=== PATIENT | male | born 1955 | race Caucasian/White ===

== ENCOUNTER 2022-10-25 16:53 | Inpatient (IN) ==
--- NOTE | 2022-10-25 17:54 | Emergency Department Note ---
SOB HPI General Chief Complaint: Shortness of Breath/Dyspnea Stated Complaint: retaining water Time Seen by Provider: 10/25/22 17:54 Source: patient Mode of arrival: ambulatory Limitations: no limitations History of Present Illness HPI Narrative: Narrative: Patient presents emerged department after being seen in urgent care today and he has been having increased welling for the last few days and over the past 4 to 5 days he has noted distention in his abdomen swelling in the abdomen swelling in his scrotum swelling in his legs and he is got a cough that is productive at times with a little bit of phlegm but is not unusual in character to him he is also sure breath with any exertion. He states that he used to urinate as many as 5 times per night and doctor recently changed his medications and he is now urinating hardly at all at nighttime. He denies fever or chills, denies known exposure to COVID, influenza, other infectious disease. He has not been have any orthopnea. The distention to his abdomen is becoming fairly uncomfortable. He denies any chest pain, history of congestive heart failure, history of dysrhythmia. He denies any diarrhea or constipation. States he is moves his bowels regularly every day but does seem to be a little less stool than usual for him. He has not had any dysuria. He is at his baseline state of health otherwise except for these new symptoms. Patient does admit to have shortness of breath with minimal exertion. Related Data Home Medications Medication Instructions Recorded Confirmed aspirin 325 mg tablet 325 mg PO HS 10/05/20 10/25/22 naproxen sodium 220 mg capsule 220 mg PO DAILY 10/05/20 10/25/22 (Aleve) CPAP & Supplies 1 inh inhalation HS FARZANEH 10/13/20 10/25/22 metformin 500 mg tablet 500 mg PO QDAY 03/19/22 10/25/22 losartan PO QDAY 09/03/22 10/25/22 Previous Rx's Medication Instructions Recorded lancets #100 ea 12/08/18 clobetasol 0.05 % topical ointment 1 applic topical QDAY #60 grams 12/07/20 alprazolam 0.5 mg tablet 0.5 mg PO DAILYP PRN anxiety #30 12/28/20 tabs valacyclovir 1 gram tablet 1,000 mg PO BID PRN Cold Sores 03/03/21 #180 tabs arm brace (NATHAN Elbow Brace) #1 ea 03/19/22 gabapentin 300 mg capsule 600 mg PO BID #240 caps 03/19/22 verapamil 180 mg 24 hr 180 mg PO HS #90 caps 04/19/22 capsule,extended release levothyroxine 88 mcg tablet 88 mcg PO QDAY #90 tabs 04/24/22 blood sugar diagnostic (OneTouch #100 ea 05/22/22 Ultra Test strips) tamsulosin 0.4 mg capsule (Flomax) 0.8 mg PO HS #180 caps 06/14/22 ropinirole 0.5 mg tablet 0.5 mg PO QHS #90 tabs 06/20/22 hydrocodone 7.5 mg-acetaminophen 1 tab PO BID PRN pain #60 tabs 10/08/22 325 mg tablet solifenacin 10 mg tablet 10 mg PO ONCE #30 tabs 10/15/22 Allergies Allergy/AdvReac Type Severity Reaction Status Date / Time terbinafine AdvReac Mild Rash Verified 10/25/22 17:01 Review of Systems ROS ROS Narrative: Narrative: See HPI for pertinent positives and negatives in review of systems. PFSH Narrative Patient History Narrative: Narrative: Medical/Surgical/Family History All Active Problems (Updated 10/25/22 @ 19:33 by Nicol Lau DO) Acute hyponatremia (Acute) FLORES (dyspnea on exertion) (Acute) Anasarca (Acute) Scrotal edema (Acute) Abscess and cellulitis (Chronic) Encounter for wound re-check (Chronic) Anxiety (Chronic) Arthritis (Chronic) Essential hypertension (Chronic) Joint pain (Chronic) Sleep apnea (Chronic) Tobacco abuse (Chronic) Eczema (Chronic) Ear discharge of both ears (Acute) Onychomycosis (Chronic) Skin plaque (Chronic) Granuloma of liver (Chronic) Osteoarthritis of knees, bilateral (Chronic) Dermatosis (Chronic) Cellulitis of leg, left (Acute) Bilateral hip pain (Chronic) Osteoarthritis (Chronic) Bilateral knee pain (Chronic) Foot pain (Chronic) Obesity (Chronic) Skin lesion (Chronic) Severe headache (Chronic) Adhesive capsulitis (Chronic) Sebaceous cyst (Chronic) Low back pain (Chronic) Decreased hearing (Chronic) Infective otitis externa, unspecified (Chronic) Left shoulder pain (Chronic) Rotator cuff syndrome (Chronic) Obstructive sleep apnea (Chronic) Insomnia (Chronic) BPH (benign prostatic hyperplasia) (Chronic) Chronic radicular low back pain (Chronic) Pain, eye, right (Acute) Shoulder pain, right (Acute) Left leg swelling (Acute) Left leg pain (Acute) Deep vein thrombosis of lower extremity (Acute) Knee pain, right (Acute) DM type 2 (diabetes mellitus, type 2) (Chronic) Plantar fasciitis of left foot (Chronic) Vertigo (Acute) Deep vein thrombosis of lower extremity (Chronic) HSV-1 infection (Chronic) Abscess (Acute) Medicare annual wellness visit, initial (Acute) Nail abnormality (Acute) Hypothyroidism (Acute) Hypothyroidism (Acute) Postoperative pain of knee (Acute) S/P total knee arthroplasty (Acute) Taste sense altered (Acute) Constipation (Acute) Splenomegaly (Acute) Pilonidal cyst (Acute) Pressure ulcer of coccygeal region (Acute) Normocytic normochromic anemia (Acute) Early satiety (Acute) Chronic pain (Chronic) Myelofibrosis (Acute) Chronic sinusitis (Acute) Acute sinusitis (Acute) Diarrhea (Acute) Impacted cerumen of both ears (Acute) Olecranon bursitis of left elbow (Acute) Neuropathic pain (Acute) Joint effusion of elbow (Acute) Medicare annual wellness visit, initial (Acute) Major depressive disorder (Acute) Overactive bladder (Acute) RLS (restless legs syndrome) (Acute) Urinary frequency (Chronic) Nocturia (Chronic) Medical History Abscess and cellulitis Adhesive capsulitis left hip Anxiety Arthritis Bilateral hip pain Bilateral knee pain Chronic pain Decreased hearing intermittent Encounter for wound re-check Essential hypertension Foot pain Infective otitis externa, unspecified Joint effusion of elbow Joint pain Left shoulder pain Low back pain Medicare annual wellness visit, initial Medicare annual wellness visit, initial Neuropathic pain Nocturia Obesity Osteoarthritis Rotator cuff syndrome left Sebaceous cyst neck Severe headache Skin lesion back of neck Sleep apnea 1994 Splenomegaly Tobacco abuse Urinary frequency Surgical History H/O knee surgery x4 History of arthroplasty of left knee (10/13/20) History of back surgery 2001 History of colonoscopy 2010 Family History Sister Arthritis Mother , at 54 Cancer Coronary artery disease Father , 58 Essential hypertension Myocardial Infarction Cerebrovascular accident (CVA) Social History Smoking Status: Current every day smoker Alcohol Intake Frequency: holiday/special occasion only Substance Use: marijuana Exam Narrative Narrative: Narrative: General Limitations: no limitations General appearance: Present alert, in no apparent distress, nontoxic and obese Head Head: Present atraumatic, normocephalic and normal inspection Eye Eye: Present normal appearance and EOMI; Absent scleral icterus, conjunctival injection or periorbital swelling ENT ENT: Present normal exam, normal oropharynx, mucous membranes dry (Mildly) and normal external ear exam Neck Neck: Present normal inspection, full ROM and trachea midline Chest Chest: Present normal inspection and symmetric chest wall rise Respiratory Respiratory: Present rales/crackles (Diffuse in all lim[place] bilaterally.); Absent respiratory distress, wheezes, stridor or accessory muscle use Cardiovascular Cardiovascular: Present regular rate, normal rhythm and normal heart sounds; Absent systolic murmur, diastolic murmur, rubs, gallop or clicks Adbominal Abdominal: Present soft, distention, diminished bowel sounds and other (Anasarca present over the entire abdomen from the xiphoid process distally. Patient has 2+ pitting alert over the entire abdomen); Absent tenderness, guarding, Machado's sign, ascites (No fluid wave present.) or pulsatile mass Rectal Rectal: Present deferred : Present scrotal swelling, circumcised and other (Patient has anasarca involving the testicles and has approximately a grapefruit sized testicular sac.); Absent testicular tenderness, urethral discharge or epididymal tenderness Extremities Extremities: Present normal inspection, full ROM (No motion abnormalities noted on gross peripheral examination. No gross deformities to the extremities.), pedal edema (2+ pitting) and pretibial edema (2+ pitting); Absent tenderness or cyanosis Neurological Neurological: Present alert, oriented X3, CN II-XII intact and other (Patient is mildly hard of hearing.); Absent motor sensory deficit (On gross peripheral examination.) Psychiatric Psychiatric: Present normal affect, normal mood and pleasant Skin Skin: Present warm (WNL), dry, intact, normal color and pallor (Questionable); Absent diaphoretic, rash, hives, cyanosis, diaphoresis or erythema Course Vital Signs Vital signs: Vital Signs Temperature 98.3 F 10/25/22 16:58 Pulse Rate 89 10/25/22 16:58 Respiratory Rate 18 10/25/22 16:58 Blood Pressure 147/78 10/25/22 16:58 Pulse Oximetry (%) 100 10/25/22 16:58 Oxygen Delivery Method 10/25/22 16:58 Temperature 98.3 F 10/25/22 16:58 Pulse Rate 55 L 10/25/22 17:57 Respiratory Rate 18 10/25/22 16:58 Blood Pressure 128/72 10/25/22 17:47 Pulse Oximetry (%) 96 10/25/22 17:57 Oxygen Delivery Method 10/25/22 16:58 MDM MDM Narrative Medical decision making narrative: Narrative: Patient presents emerged part with complaint of shortness of breath worsened with exertion and swelling from the epigastric portion of his abdomen distally to his feet with generalized anasarca with 2+ pitting. Please see HPI, physical exam, chart about further details. I have ordered work-up for congestive heart failure to include CBC, chemistry, troponin, EKG, chest x-ray, BNP. Patient's BNP is returned elevated at 5000, sodium is low at 116, his troponin is normal. He has generalized anasarca and because of his hyponatremia should be admitted. We will going order some Lasix for him and turned care of patient over to Dr. Javier at 1930 hrs. Final diagnosis disposition per Dr. Javier. Sepsis Sepsis Identified: No Differential Diagnosis Differential Diagnosis: Congestive heart failure, MA, hypoalbuminemia, anasarca, electrolyte abnorm Medical Records Medical records reviewed: Yes I reviewed the patient's medical records. Lab Data Lab results reviewed: Yes I reviewed the patient's lab results. Result diagrams: 10/25/22 18:16 Labs: Lab Results 10/25/22 Range/Units 18:26 POC Hct 30.0 L (41-55) POC Sodium 116 L* (133-145) POC Potassium 5.3 H (3.3-5.1) POC Chloride 90 L (96-108) POC Total CO2 18.0 L (22-30) POC BUN 33 H (6-20) POC Creatinine 1.1 (0.6-1.2) POC Glucose 113 H (70-105) POC WB Ioniz Calcium 0.98 L (1.16-1.32) Radiology Data Radiology results reviewed: Yes I reviewed the patient's radiology results. Radiology results narrative: Pro chest x-ray does not show any evidence of congestive heart failure. He does have cardiomegaly. No infiltrates noted. Radiology overread is pending. When compared to previous chest x-ray performed on April 27, 2022 there is a little bit more heart enlargement otherwise not changed. EKG Data EKG #1: EKG attestation: Yes I reviewed and interpreted this EKG. EKG results narrative: EKG obtained this date at 1828 hrs. interpreted by myself shows a junctio V2, V3, V4, V5. There are ST depressions noted in leads I, aVL, V2 through V6. There are no prior EKGs available for comparison. Question ischemia, no definite STEMI noted. Al rhythm at 58 bpm. [place] is normal. [place] intervals when present are approximate 240 ms. There are some areas of the EKG and in certain leads I do not have preceding P waves. Remainder of intervals within normal limits. Morphology show right bundle branch block with RSR prime in leads V1 and V2 as well as V3. There are T wave inversions in leads aVL, V1 Discharge Plan Patient/Caregiver Discharge Instructions Pt seen by DUST CONTROL ENGINEER/PA only: No Clinical Impression: Acute hyponatremia, FLORES (dyspnea on exertion), Anasarca, Scrotal edema Patient Disposition: Still a Patient Follow up with: Elie Adam DO [Primary Care Provider] - Prescriptions: No Action (DME) lancets [facility] See Dose Instructions .ROUTE .MEDSUPPLY Qty: 100 3RF Dose Instruction: As directed Rx Instructions: Use to test blood sugar up to three times daily valacyclovir 1 gram tablet 1,000 mg PO BID PRN (Reason: Cold Sores) Qty: 180 1RF Label Comments: PATIENT ONLY TAKES WHEN HE HAS COLD SORES. alprazolam 0.5 mg tablet 0.5 mg PO DAILYP PRN (Reason: anxiety) Qty: 30 3RF verapamil 180 mg capsule,ext rel. pellets 24 hr 180 mg PO HS Qty: 90 1RF levothyroxine 88 mcg tablet 88 mcg PO QDAY Qty: 90 3RF (DME) OneTouch Ultra Test Strip See Rx Instructions .Route Qty: 100 3RF Rx Instructions: As directed testing blood sugar once daily tamsulosin [Flomax] 0.4 mg capsule 0.8 mg PO HS Qty: 180 1RF hydrocodone-acetaminophen 7.5-325 mg tablet 1 tab PO BID PRN (Reason: pain) Qty: 60 0RF clobetasol 0.05 % ointment 1 applic TOPICAL QDAY Qty: 60 0RF metformin 500 mg tablet 500 mg PO QDAY gabapentin 300 mg capsule 600 mg PO BID Qty: 240 3RF (DME) NATHAN Elbow Brace Misc See Rx Instructions .Route Qty: 1 0RF Rx Instructions: As directed ropinirole 0.5 mg tablet 0.5 mg PO QHS Qty: 90 3RF Hold Instructions: Doctor's Order Rx Instructions: administer 1-3 hours before bedtime aspirin 325 mg Tablet 325 mg PO HS Label Comments: HOLDING FOR SURGERY naproxen sodium [Aleve] 220 mg Capsule 220 mg PO DAILY Label Comments: HOLDING FOR SURGERY CPAP & Supplies inhaler 1 inh inhalation HS Rx Instructions: Use nightly for FARZANEH. losartan PO QDAY solifenacin 10 mg tablet 10 mg PO ONCE Qty: 30 6RF
[2022-10-25 18:31] LABS: POC Calcium, Ionized 0.98 (1.16-1.32); POC Creatinine 1.1 (0.6-1.2); POC Potassium 5.3 (3.3-5.1)
[2022-10-25 18:55] LABS: Basophils # (Auto) 0.14 K/mcL (0.00-0.30); Basophils % (Auto) 1.9 % (0.0-2.0); Eosinophils # (Auto) 0.02 K/mcL (0.00-0.70); Eosinophils % (Auto) 0.3 % (0.0-7.0); Hematocrit 28.8 % (40.1-51.0); Hemoglobin 9.7 g/dL (13.7-17.5); Lymphocytes # (Auto) 1.09 K/mcL (1.50-4.80); Lymphocytes % (Auto) 14.7 % (15.5-49.0); Mean Corpuscular HGB Conc 33.7 g/dL (31.0-36.0); Mean Platelet Volume 9.4 fL (8.8-12.5); Monocytes # (Auto) 0.39 K/mcL (0.10-0.90); Monocytes % (Auto) 5.3 % (1.0-12.0); Neutrophils % (Auto) 60.8 % (38.0-78.0); Platelet Count 323 K/mcL (140-440); RBC 3.31 M/mcL (4.63-6.08); Red Cell Distribution Width 15.7 % (11.5-14.5); WBC 7.4 K/mcL (4.5-11.0)
[2022-10-25 19:10] LABS: ALT/SGPT 19 U/L (<40); AST/SGOT 19 U/L (<40); Albumin 3.9 gm/dL (3.2-5.2); Alkaline Phosphatase 117 U/L (39-117); Bilirubin,Direct 0.3 mg/dL (<0.3); Bilirubin,Total 0.7 mg/dL (0.1-1.0); Globulin 1.9 gm/dL (2.2-3.7)
[2022-10-25] MEDS ORDERED: FUROSEMIDE 40 MG/4 ML VIAL IV ONE (19:30)
--- NOTE | 2022-10-25 20:09 | Emergency Department Note ---
Course Course Course Narrative: I assumed care of patient at 1900 pending labs and hospitalist consult. Patient's laboratories show that she was hyponatremic and hyperkalemic. EKG was unremarkable. Chest x-ray obtained with image reviewed myself with shows some cardiomegaly but no pleural effusions. Case was discussed with hospitalist who has agreed to admit the patient for symptomatic hyponatremia and possible CHF exacerbation. Plan of care was discussed with patient expressed verbal understanding and agreement Vital Signs Vital signs: Vital Signs Temperature 98.3 F 10/25/22 16:58 Pulse Rate 89 10/25/22 16:58 Respiratory Rate 18 10/25/22 16:58 Blood Pressure 147/78 10/25/22 16:58 Pulse Oximetry (%) 100 10/25/22 16:58 Oxygen Delivery Method 10/25/22 16:58 Temperature 98.3 F 10/25/22 16:58 Pulse Rate 57 L 10/25/22 19:32 Respiratory Rate 21 10/25/22 19:32 Blood Pressure 124/94 10/25/22 19:32 Pulse Oximetry (%) 95 10/25/22 19:32 Oxygen Delivery Method 10/25/22 18:38 MDM MDM Narrative Medical decision making narrative: Narrative: Differential Diagnosis Differential Diagnosis: Hyponatremia Medical Records Medical records reviewed: Yes I reviewed the patient's medical records. Lab Data Lab results reviewed: Yes I reviewed the patient's lab results. Result diagrams: 10/25/22 18:16 Labs: Lab Results 10/25/22 10/25/22 10/25/22 Range/Units 18:16 18:16 18:23 WBC 7.4 (4.5-11.0) K/mcL RBC 3.31 L (4.63-6.08) M/mcL Hgb 9.7 L (13.7-17.5) g/dL Hct 28.8 L (40.1-51.0) % POC Hct (41-55) MCV 87.0 (80.0-100.0) fL MCH 29.3 (26.0-34.0) pg MCHC 33.7 (31.0-36.0) g/dL RDW 15.7 H (11.5-14.5) % Plt Count 323 (140-440) K/mcL MPV 9.4 (8.8-12.5) fL Immature Gran % (Auto) 17.0 H (0.0-0.5) % Neut % (Auto) 60.8 (38.0-78.0) % Lymph % (Auto) 14.7 L (15.5-49.0) % [place] % (Auto) 5.3 (1.0-12.0) % Eos % (Auto) 0.3 (0.0-7.0) % Baso % (Auto) 1.9 (0.0-2.0) % Lymph # (Auto) 1.09 L (1.50-4.80) K/mcL [place] # (Auto) 0.39 (0.10-0.90) K/mcL Eos # (Auto) 0.02 (0.00-0.70) K/mcL Baso # (Auto) 0.14 (0.00-0.30) K/mcL Immature Gran # 1.26 H (0.00-0.05) K/mcl Absolute Neutrophils 4.52 (1.80-8.00) K/mcL POC Sodium (133-145) POC Potassium (3.3-5.1) POC Chloride (96-108) POC Total CO2 (22-30) POC BUN (6-20) POC Creatinine (0.6-1.2) POC Glucose (70-105) POC WB Ioniz Calcium (1.16-1.32) Total Bilirubin 0.7 (0.1-1.0) mg/dL Direct Bilirubin 0.3 H (<0.3) mg/dL AST 19 (<40) U/L ALT 19 (<40) U/L Alkaline Phosphatase 117 (39-117) U/L NT-Pro-B Natriuret Pep 5059.0 H (<125.0) pg/mL Total Protein 5.8 L (5.9-8.4) gm/dL Albumin 3.9 (3.2-5.2) gm/dL Globulin 1.9 L (2.2-3.7) gm/dL POC Troponin I < 0.02 (0.00-0.08) 10/25/22 Range/Units 18:26 WBC (4.5-11.0) K/mcL RBC (4.63-6.08) M/mcL Hgb (13.7-17.5) g/dL Hct (40.1-51.0) % POC Hct 30.0 L (41-55) MCV (80.0-100.0) fL MCH (26.0-34.0) pg MCHC (31.0-36.0) g/dL RDW (11.5-14.5) % Plt Count (140-440) K/mcL MPV (8.8-12.5) fL Immature Gran % (Auto) (0.0-0.5) % Neut % (Auto) (38.0-78.0) % Lymph % (Auto) (15.5-49.0) % [place] % (Auto) (1.0-12.0) % Eos % (Auto) (0.0-7.0) % Baso % (Auto) (0.0-2.0) % Lymph # (Auto) (1.50-4.80) K/mcL [place] # (Auto) (0.10-0.90) K/mcL Eos # (Auto) (0.00-0.70) K/mcL Baso # (Auto) (0.00-0.30) K/mcL Immature Gran # (0.00-0.05) K/mcl Absolute Neutrophils (1.80-8.00) K/mcL POC Sodium 116 L* (133-145) POC Potassium 5.3 H (3.3-5.1) POC Chloride 90 L (96-108) POC Total CO2 18.0 L (22-30) POC BUN 33 H (6-20) POC Creatinine 1.1 (0.6-1.2) POC Glucose 113 H (70-105) POC WB Ioniz Calcium 0.98 L (1.16-1.32) Total Bilirubin (0.1-1.0) mg/dL Direct Bilirubin (<0.3) mg/dL AST (<40) U/L ALT (<40) U/L Alkaline Phosphatase (39-117) U/L NT-Pro-B Natriuret Pep (<125.0) pg/mL Total Protein (5.9-8.4) gm/dL Albumin (3.2-5.2) gm/dL Globulin (2.2-3.7) gm/dL POC Troponin I (0.00-0.08) Radiology Data Radiology results reviewed: Yes I reviewed the patient's radiology results. Radiology results narrative: Chest x-ray obtained with image reviewed myself, agree with radiologist to rotation Core Measures AMI Core Measures Followed: Yes Discharge Plan Patient/Caregiver Discharge Instructions Pt seen by HEALTH IT SPECIALIST/PA only: No Clinical Impression: Acute hyponatremia, FLORES (dyspnea on exertion), Anasarca, Scrotal edema Patient Disposition: Xfer As Outpt/Obs ([facility]) Condition: Critical Follow up with: Elie Adam DO [Primary Care Provider] - Prescriptions: No Action (DME) lancets misc See Dose Instructions .ROUTE .MEDSUPPLY Qty: 100 3RF Dose Instruction: As directed Rx Instructions: Use to test blood sugar up to three times daily valacyclovir 1 gram tablet 1,000 mg PO BID PRN (Reason: Cold Sores) Qty: 180 1RF Label Comments: PATIENT ONLY TAKES WHEN HE HAS COLD SORES. alprazolam 0.5 mg tablet 0.5 mg PO DAILYP PRN (Reason: anxiety) Qty: 30 3RF verapamil 180 mg capsule,ext rel. pellets 24 hr 180 mg PO HS Qty: 90 1RF levothyroxine 88 mcg tablet 88 mcg PO QDAY Qty: 90 3RF (DME) OneTouch Ultra Test Strip See Rx Instructions .Route Qty: 100 3RF Rx Instructions: As directed testing blood sugar once daily tamsulosin [Flomax] 0.4 mg capsule 0.8 mg PO HS Qty: 180 1RF hydrocodone-acetaminophen 7.5-325 mg tablet 1 tab PO BID PRN (Reason: pain) Qty: 60 0RF clobetasol 0.05 % ointment 1 applic TOPICAL QDAY Qty: 60 0RF metformin 500 mg tablet 500 mg PO QDAY gabapentin 300 mg capsule 600 mg PO BID Qty: 240 3RF (DME) NATHAN Elbow Brace Misc See Rx Instructions .Route Qty: 1 0RF Rx Instructions: As directed ropinirole 0.5 mg tablet 0.5 mg PO QHS Qty: 90 3RF Hold Instructions: Doctor's Order Rx Instructions: administer 1-3 hours before bedtime aspirin 325 mg Tablet 325 mg PO HS Label Comments: HOLDING FOR SURGERY naproxen sodium [Aleve] 220 mg Capsule 220 mg PO DAILY Label Comments: HOLDING FOR SURGERY CPAP & Supplies inhaler 1 inh inhalation HS Rx Instructions: Use nightly for FARZANEH. losartan PO QDAY solifenacin 10 mg tablet 10 mg PO ONCE Qty: 30 6RF
--- NOTE | 2022-10-25 20:17 | Internal Med History&Physical ---
HPI History of Present Illness Patient information: Note initiated : 10/25/22 at 8:16 pm Service Date, if different from initiated Date: [] Patient: Davis Terrazas 66 y/o M admitted on for retaining water. Chief Complaint: [] History of present illness: Mr. 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 Patient also had a recent cough and left neck tenderness. Review of systems Constitutional: no fever, fatigue, or weight loss Eyes: no vision changes or pain Cardiovascular: no chest pain, no palpitations Respiratory: Positive for shortness of breath, cough and sore throat Gastrointestinal: no abdominal pain, no nausea, vomiting, or diarrhea Genitourinary: no dysuria or difficulty voiding Musculoskeletal: Positive for bilateral lower extremity edema Integumentary: As it of for wound on right lower extremity Neurological: no focal weakness or numbness Psychiatric: no anxiety or depression Physical exam Head: Atraumatic, normal inspection. Eyes: normal appearance, no scleral icterus. Neck: full ROM Respiratory: no respiratory distress. Cardiovascular: normal rate and rhythm, S1, S2. GI/Abdominal: Obesely distended, large palpable spleen, nontender, no guarding. Extremities: Bilateral lower extremity pitting edema 3+ Neurological: CN II-XII intact, intact motor, intact sensation. Psychiatric: normal mood. Skin: Circular wound on right lower extremity PFSH PFSH All Active Problems (Updated 10/25/22 @ 19:33 by Nicol Lau DO) Acute hyponatremia (Acute) FLORES (dyspnea on exertion) (Acute) Anasarca (Acute) Scrotal edema (Acute) Abscess and cellulitis (Chronic) Encounter for wound re-check (Chronic) Anxiety (Chronic) Arthritis (Chronic) Essential hypertension (Chronic) Joint pain (Chronic) Sleep apnea (Chronic) Tobacco abuse (Chronic) Eczema (Chronic) Ear discharge of both ears (Acute) Onychomycosis (Chronic) Skin plaque (Chronic) Granuloma of liver (Chronic) Osteoarthritis of knees, bilateral (Chronic) Dermatosis (Chronic) Cellulitis of leg, left (Acute) Bilateral hip pain (Chronic) Osteoarthritis (Chronic) Bilateral knee pain (Chronic) Foot pain (Chronic) Obesity (Chronic) Skin lesion (Chronic) Severe headache (Chronic) Adhesive capsulitis (Chronic) Sebaceous cyst (Chronic) Low back pain (Chronic) Decreased hearing (Chronic) Infective otitis externa, unspecified (Chronic) Left shoulder pain (Chronic) Rotator cuff syndrome (Chronic) Obstructive sleep apnea (Chronic) Insomnia (Chronic) BPH (benign prostatic hyperplasia) (Chronic) Chronic radicular low back pain (Chronic) Pain, eye, right (Acute) Shoulder pain, right (Acute) Left leg swelling (Acute) Left leg pain (Acute) Deep vein thrombosis of lower extremity (Acute) Knee pain, right (Acute) DM type 2 (diabetes mellitus, type 2) (Chronic) Plantar fasciitis of left foot (Chronic) Vertigo (Acute) Deep vein thrombosis of lower extremity (Chronic) HSV-1 infection (Chronic) Abscess (Acute) Medicare annual wellness visit, initial (Acute) Nail abnormality (Acute) Hypothyroidism (Acute) Hypothyroidism (Acute) Postoperative pain of knee (Acute) S/P total knee arthroplasty (Acute) Taste sense altered (Acute) Constipation (Acute) Splenomegaly (Acute) Pilonidal cyst (Acute) Pressure ulcer of coccygeal region (Acute) Normocytic normochromic anemia (Acute) Early satiety (Acute) Chronic pain (Chronic) Myelofibrosis (Acute) Chronic sinusitis (Acute) Acute sinusitis (Acute) Diarrhea (Acute) Impacted cerumen of both ears (Acute) Olecranon bursitis of left elbow (Acute) Neuropathic pain (Acute) Joint effusion of elbow (Acute) Medicare annual wellness visit, initial (Acute) Major depressive disorder (Acute) Overactive bladder (Acute) RLS (restless legs syndrome) (Acute) Urinary frequency (Chronic) Nocturia (Chronic) Medical History Abscess and cellulitis Adhesive capsulitis left hip Anxiety Arthritis Bilateral hip pain Bilateral knee pain Chronic pain Decreased hearing intermittent Encounter for wound re-check Essential hypertension Foot pain Infective otitis externa, unspecified Joint effusion of elbow Joint pain Left shoulder pain Low back pain Medicare annual wellness visit, initial Medicare annual wellness visit, initial Neuropathic pain Nocturia Obesity Osteoarthritis Rotator cuff syndrome left Sebaceous cyst neck Severe headache Skin lesion back of neck Sleep apnea 1994 Splenomegaly Tobacco abuse Urinary frequency Surgical History H/O knee surgery x4 History of arthroplasty of left knee (10/13/20) History of back surgery 2002 History of colonoscopy 2010 Family History Sister Arthritis Mother , at 54 Cancer Coronary artery disease Father , 58 Essential hypertension Myocardial Infarction Cerebrovascular accident (CVA) Social History household members: alone housing: condominium lives independently: Yes marital status: education level: high school service: No occupational status: retired pets and animals: No leisure activities: sports, exercise, hunting, fishing and reading hx recent travel: Yes sexually active: No other: Siblings are Healthy well-balanced diet: about half the time high-fat food intake: 0-1 times daily daily servings fruits/ve-1 daily servings of milk/calcium: 5 or more eating out: rarely or never during the past year weight has: remained stable physical activity: other details: golfing, fishing, yard work frequency: daily duration: > 90 minutes/day smoking status: Current every day smoker quit status: considering quitting alcohol intake frequency: holiday/special occasion only substance use type: marijuana francis/hinduism: None special francis needs: No seatbelt use: always drive intox or ride w/ intox recycle driver: No working smoke detector in home: Yes fire extinguisher in home: Yes carbon monox detector in home: Yes firearms in home: No MEDS/ALLERGIES Home Medications and Allergies Home Medications Medication Instructions Recorded Confirmed Type lancets #100 ea 12/08/18 10/25/22 Rx aspirin 325 mg tablet 325 mg PO HS 10/05/20 10/25/22 History naproxen sodium 220 mg capsule 220 mg PO DAILY 10/05/20 10/25/22 History (Aleve) CPAP & Supplies 1 inh inhalation HS FARZANEH 10/13/20 10/25/22 History clobetasol 0.05 % topical ointment 1 applic topical QDAY #60 grams 12/07/20 10/25/22 Rx alprazolam 0.5 mg tablet 0.5 mg PO DAILYP PRN anxiety #30 12/28/20 10/25/22 Rx tabs valacyclovir 1 gram tablet 1,000 mg PO BID PRN Cold Sores 12/28/20 10/25/22 Rx #180 tabs arm brace (NATHAN Elbow Brace) #1 ea 03/19/22 10/25/22 Rx gabapentin 300 mg capsule 600 mg PO BID #240 caps 03/19/22 10/25/22 Rx metformin 500 mg tablet 500 mg PO QDAY 03/19/22 10/25/22 History verapamil 180 mg 24 hr 180 mg PO HS #90 caps 04/19/22 10/25/22 Rx capsule,extended release levothyroxine 88 mcg tablet 88 mcg PO QDAY #90 tabs 04/24/22 10/25/22 Rx blood sugar diagnostic (OneTouch #100 ea 05/22/22 10/25/22 Rx Ultra Test strips) tamsulosin 0.4 mg capsule (Flomax) 0.8 mg PO HS #180 caps 06/14/22 10/25/22 Rx ropinirole 0.5 mg tablet 0.5 mg PO QHS #90 tabs 06/20/22 10/25/22 Rx losartan PO QDAY 09/03/22 10/25/22 History hydrocodone 7.5 mg-acetaminophen 1 tab PO BID PRN pain #60 tabs 10/08/22 10/25/22 Rx 325 mg tablet solifenacin 10 mg tablet 10 mg PO ONCE #30 tabs 10/15/22 10/25/22 Rx Allergies Allergy/AdvReac Type Severity Reaction Status Date / Time terbinafine AdvReac Mild Rash Verified 10/25/22 17:01 EXAM Constitutional Vitals: Temp Pulse Resp BP Pulse Ox O2 Del Method 98.3 F 57 L 21 124/94 95 10/25/22 16:58 10/25/22 19:32 10/25/22 19:32 10/25/22 19:32 10/25/22 19:32 10/25/22 18:38 DATA Data Completed and Pending Labs: Labs from last 24 hours 10/25/22 10/25/22 10/25/22 18:26 18:23 18:16 WBC RBC Hgb Hct POC Hct 30.0 L MCV MCH MCHC RDW Plt Count MPV Immature Gran % (Auto) Neut % (Auto) Lymph % (Auto) [place] % (Auto) Eos % (Auto) Baso % (Auto) Lymph # (Auto) [place] # (Auto) Eos # (Auto) Baso # (Auto) Immature Gran # Absolute Neutrophils POC Sodium 116 L* POC Potassium 5.3 H POC Chloride 90 L POC Total CO2 18.0 L POC BUN 33 H POC Creatinine 1.1 POC Glucose 113 H POC WB Ioniz Calcium 0.98 L Total Bilirubin 0.7 Direct Bilirubin 0.3 H AST 19 ALT 19 Alkaline Phosphatase 117 NT-Pro-B Natriuret Pep 5059.0 H Total Protein 5.8 L Albumin 3.9 Globulin 1.9 L POC Troponin I < 0.02 10/25/22 18:16 WBC 7.4 RBC 3.31 L Hgb 9.7 L Hct 28.8 L POC Hct MCV 87.0 MCH 29.3 MCHC 33.7 RDW 15.7 H Plt Count 323 MPV 9.4 Immature Gran % (Auto) 17.0 H Neut % (Auto) 60.8 Lymph % (Auto) 14.7 L [place] % (Auto) 5.3 Eos % (Auto) 0.3 Baso % (Auto) 1.9 Lymph # (Auto) 1.09 L [place] # (Auto) 0.39 Eos # (Auto) 0.02 Baso # (Auto) 0.14 Immature Gran # 1.26 H Absolute Neutrophils 4.52 POC Sodium POC Potassium POC Chloride POC Total CO2 POC BUN POC Creatinine POC Glucose POC WB Ioniz Calcium Total Bilirubin Direct Bilirubin AST ALT Alkaline Phosphatase NT-Pro-B Natriuret Pep Total Protein Albumin Globulin POC Troponin I A/P Narrative A/P Narrative: Assessment: 66 year old male with a history not limited to hypertension, type 2 diabetes mellitus, hypothyroidism, FARZANEH, anemia, iron deficiency, primary myelofibrosis, liver granuloma, splenomegaly, BPH and obesity admitted for severe hypervolemic hyponatremia. The most likely underlying etiology for hypervolemic hyponatremia is heart failure, possibly right sided heart failure. #Severe hypervolemic hyponatremia possibly multifactorial due to Inrebic and CHF #Anasarca possibly due to heart failure #Mild hyperkalemia #Sore throat and a cough #Type 2 diabetes mellitus #Essential hypertension #Primary myelofibrosis #Chronic anemia #Splenomegaly #FARZANEH #BPH #Restless leg syndrome #Obesity #Histor of iron deficiency #History of DVT Plan -Lasix 40 mg IV BID for now. -Trend sodium, avoid overcorrection. -Transthoracic echocardiogram. -Urine protein to creatinine ratio. -Check INR. -Iron studies and ferritin. -Monitor renal function, electrolytes, and urine output. -Hold Inrebic for now, consider consultation with oncology. -Correction sliding scale insulin low dose. -Tessalon Perles as needed, monitor left neck tenderness, consider imaging if tenderness does not resolve. -Home medication reconciliation, continue important meds. -CPAP at bedtime. -Diabetic diet. -DVT prophylaxis: Lovenox Time Spent With Patient Time: Total time spent is greater than 50% in coordination of care (as documented) at patient's floor/unit and/or counseling patient:
[2022-10-25 20:50] LABS: Ferritin 206.6 ng/mL (30.0-400.0)
[2022-10-25] MEDS ORDERED: ONDANSETRON 4 MG/2 ML VIAL IV PRN (21:38)
[2022-10-25] MEDS ORDERED: DEXTROSE 31 GM ORAL.SUSP PO PRN (21:38)
[2022-10-25] MEDS ORDERED: ACETAMINOPHEN 325 MG TABLET PO PRN (21:38)
[2022-10-25] MEDS ORDERED: LACTULOSE 20 GM/30 ML ORAL.SOL PO PRN (21:38)
[2022-10-25] MEDS ORDERED: SENNOSIDES 1 TABLET PO PRN (21:38)
[2022-10-25] MEDS ORDERED: DEXTROSE 50% 50 ML VIAL IV PRN (21:38)
[2022-10-25] MEDS: 0.9 % SODIUM CHLORIDE 10 ML SYRINGE IV SCH (22:00)
[2022-10-25 23:37] LABS: ALT/SGPT 17 U/L (<40); AST/SGOT 17 U/L (<40); Albumin 3.6 gm/dL (3.2-5.2); Albumin/Globulin Ratio 1.7 (1.0-2.3); Alkaline Phosphatase 111 U/L (39-117); Bilirubin,Direct 0.3 mg/dL (<0.3); Bilirubin,Total 0.7 mg/dL (0.1-1.0); Blood Urea Nitrogen 31 mg/dL (8-23); Carbon Dioxide 20 mmol/L (22-30); Chloride 85 mmol/L (96-108); Globulin 2.1 gm/dL (2.2-3.7); Glomerular Filtration Rate 68; Glucose 123 mg/dL (70-105); Lactate Dehydrogenase 970 U/L (135-225); Phosphorous 3.8 mg/dL (2.5-4.5); Triglycerides 121 mg/dL (<150); Uric Acid 10.3 mg/dL (2.5-8.0)
[2022-10-26 01:03] LABS: Appearance,Urine CLEAR (Clear); Bilirubin,Urine Negative (Negative); Color,Urine STRAW; Culture Indicated,Urine No; Glucose,Urine (UA) Negative (Negative); Ketones,Urine Negative (Negative); Leukocyte Esterase,Urine Negative /uL (Negative); Nitrate,Urine Negative (Negative); Protein,Urine Negative (Negative); Specific Gravity,Urine 1.005 (1.000-1.035); Urine Blood Negative (Negative); Urobilinogen,Urine Negative
[2022-10-26 01:32] LABS: Creatinine, Spot Urine 11.9 mg/dL (39.0-259.0); Pro:Crea Ratio 0.34 (<0.20)
[2022-10-26] MEDS: INSULIN LISPRO 1 UNIT/0.01 ML UNIT SQ SCH ×5 (03:41→20:47)
[2022-10-26] MEDS: DOCUSATE SODIUM 100 MG CAPSULE PO SCH ×4 (03:41→20:48)
[2022-10-26 05:27] LABS: Basophils # (Auto) 0.07 K/mcL (0.00-0.30); Basophils % (Auto) 1.5 % (0.0-2.0); Eosinophils # (Auto) 0.02 K/mcL (0.00-0.70); Eosinophils % (Auto) 0.4 % (0.0-7.0); Hematocrit 25.7 % (40.1-51.0); Hemoglobin 8.8 g/dL (13.7-17.5); Lymphocytes # (Auto) 0.62 K/mcL (1.50-4.80); Mean Cell Volume 87.4 fL (80.0-100.0); Mean Corpuscular HGB Conc 34.2 g/dL (31.0-36.0); Mean Platelet Volume 9.1 fL (8.8-12.5); Monocytes # (Auto) 0.36 K/mcL (0.10-0.90); Monocytes % (Auto) 7.5 % (1.0-12.0); Neutrophils % (Auto) 58.5 % (38.0-78.0); Platelet Count 279 K/mcL (140-440); RBC 2.94 M/mcL (4.63-6.08); Red Cell Distribution Width 15.5 % (11.5-14.5); WBC 4.8 K/mcL (4.5-11.0)
[2022-10-26 05:51] LABS: ALT/SGPT 18 U/L (<40); AST/SGOT 18 U/L (<40); Albumin 3.6 gm/dL (3.2-5.2); Alkaline Phosphatase 109 U/L (39-117); Bilirubin,Direct 0.2 mg/dL (<0.3); Bilirubin,Total 0.6 mg/dL (0.1-1.0); Blood Urea Nitrogen 39 mg/dL (8-23); Calcium 7.9 mg/dL (8.6-10.4); Carbon Dioxide 18 mmol/L (22-30); Chloride 89 mmol/L (96-108); Globulin 1.8 gm/dL (2.2-3.7); Glomerular Filtration Rate 61; Glucose 118 mg/dL (70-105); Lactate Dehydrogenase 961 U/L (135-225); Phosphorous 4.1 mg/dL (2.5-4.5); Triglycerides 111 mg/dL (<150); Uric Acid 10.1 mg/dL (2.5-8.0)
[2022-10-26] MEDS: 0.9 % SODIUM CHLORIDE 10 ML SYRINGE IV SCH ×3 (05:52→21:59)
[2022-10-26 05:59] LABS: INR 1.3 (0.9-1.1); Prothrombin Time 16.7 sec (11.9-14.5)
[2022-10-26] MEDS ORDERED: BENZONATATE 100 MG CAPSULE PO PRN (07:14)
[2022-10-26] MEDS: FUROSEMIDE 40 MG/4 ML VIAL IV SCH ×2 (07:54→15:13)
[2022-10-26] MEDS: ENOXAPARIN 40 MG/0.4 ML SYRINGE SQ SCH (08:12)
[2022-10-26] MEDS: THIAMINE 100 MG TABLET PO SCH (08:12)
--- NOTE | 2022-10-26 08:55 | XRay Report ---
HISTORY: Chest pain, retaining water FINDINGS: The heart is moderately enlarged and has increased in size since 04/27/22. There is no congestive heart failure or pleural effusion. The lungs are clear. Mild arthritis is present in the left shoulder. IMPRESSION: Worsening cardiomegaly, without congestive heart failure Interpreted and Authenticated by: Edin Arnold 10/26/22
[2022-10-26] MEDS: SUCRETS LOZENGE PO PRN ×4 (10:57→20:46)
[2022-10-26] MEDS ORDERED: IOPAMIDOL 100 ML BOTTLE IV ONE (17:04)
[2022-10-26] MEDS: TAMSULOSIN 0.4 MG CAPSULE PO SCH (20:46)
[2022-10-26] MEDS: GABAPENTIN 300 MG CAPSULE PO SCH (20:47)
[2022-10-26] MEDS: ASPIRIN 81 MG TAB.CHEW PO SCH (20:47)
[2022-10-26] MEDS: diphenhydrAMINE 25 MG CAPSULE PO PRN (20:47)
[2022-10-26] MEDS: HYDROCODONE/APAP 7.5/325MG TABLET PO PRN (20:59)
[2022-10-27 05:45] LABS: Basophils # (Auto) 0.08 K/mcL (0.00-0.30); Eosinophils # (Auto) 0.01 K/mcL (0.00-0.70); Eosinophils % (Auto) 0.3 % (0.0-7.0); Hematocrit 25.8 % (40.1-51.0); Hemoglobin 8.4 g/dL (13.7-17.5); Lymphocytes # (Auto) 0.46 K/mcL (1.50-4.80); Lymphocytes % (Auto) 11.8 % (15.5-49.0); Mean Cell Volume 90.2 fL (80.0-100.0); Mean Corpuscular HGB Conc 32.6 g/dL (31.0-36.0); Mean Platelet Volume 9.4 fL (8.8-12.5); Monocytes # (Auto) 0.33 K/mcL (0.10-0.90); Monocytes % (Auto) 8.4 % (1.0-12.0); Platelet Count 272 K/mcL (140-440); RBC 2.86 M/mcL (4.63-6.08); Red Cell Distribution Width 15.7 % (11.5-14.5); WBC 3.9 K/mcL (4.5-11.0)
[2022-10-27] MEDS: 0.9 % SODIUM CHLORIDE 10 ML SYRINGE IV SCH ×3 (05:57→22:00)
[2022-10-27 06:00] LABS: ALT/SGPT 19 U/L (<40); AST/SGOT 21 U/L (<40); Albumin 3.5 gm/dL (3.2-5.2); Albumin/Globulin Ratio 1.8 (1.0-2.3); Alkaline Phosphatase 102 U/L (39-117); Bilirubin,Direct 0.2 mg/dL (<0.3); Bilirubin,Total 0.6 mg/dL (0.1-1.0); Blood Urea Nitrogen 35 mg/dL (8-23); Calcium 7.9 mg/dL (8.6-10.4); Carbon Dioxide 23 mmol/L (22-30); Chloride 89 mmol/L (96-108); Glomerular Filtration Rate 76; Glucose 103 mg/dL (70-105); Lactate Dehydrogenase 925 U/L (135-225); Phosphorous 3.9 mg/dL (2.5-4.5); Triglycerides 122 mg/dL (<150); Uric Acid 8.8 mg/dL (2.5-8.0)
[2022-10-27 07:33] LABS: Neutrophils % (Auto) 56.5 % (38.0-78.0)
[2022-10-27] MEDS: INSULIN LISPRO 1 UNIT/0.01 ML UNIT SQ SCH ×4 (07:36→20:22)
[2022-10-27] MEDS: FUROSEMIDE 40 MG/4 ML VIAL IV SCH ×2 (07:36→15:41)
[2022-10-27] MEDS: LEVOTHYROXINE 100 MCG TABLET PO SCH (07:36)
[2022-10-27] MEDS: SUCRETS LOZENGE PO PRN ×2 (07:44→20:29)
[2022-10-27] MEDS: ENOXAPARIN 40 MG/0.4 ML SYRINGE SQ SCH (08:58)
[2022-10-27] MEDS: DOCUSATE SODIUM 100 MG CAPSULE PO SCH ×3 (08:58→20:22)
[2022-10-27] MEDS: GABAPENTIN 300 MG CAPSULE PO SCH ×2 (08:59→20:22)
[2022-10-27] MEDS: THIAMINE 100 MG TABLET PO SCH (08:59)
[2022-10-27] MEDS: HYDROCODONE/APAP 7.5/325MG TABLET PO PRN ×2 (09:00→17:02)
[2022-10-27] MEDS ORDERED: LEVOTHYROXINE 88 MCG TABLET PO SCH (09:00)
--- NOTE | 2022-10-27 09:05 | Cat Scan Report ---
History: Retaining water, right ventricular systolic dysfunction, immunosuppressed TECHNIQUE: Following injection of intravenous nonionic contrast the chest was imaged at 2.5 mm intervals from above the thoracic inlet to the top of the adrenals. Sagittal, coronal and axial MIPS images were created. The radiation exposure was limited using dose reduction technology. FINDINGS: Small bilateral layering pleural effusions are present. There is a small alveolar infiltrate centrally in the right middle lobe. No evidence of a lung mass. Minor dependent atelectasis is present in the posterior basal segments of both lower lobes. The trachea and bronchi are normal. Heart is mildly enlarged. There is very little atherosclerotic disease. Aorta is normal in caliber. No pulmonary emboli are detected. Patient has several calcified granulomata in the liver. Liver is mildly enlarged. There is moderate enlargement of the spleen. IMPRESSION: No evidence pulmonary emboli. Right middle lobe pneumonia. Small pleural effusions Mild cardiomegaly Hepatosplenomegaly Dr. Hartman was called with the report Interpreted and Authenticated by: Edin Arnold 10/27/22
--- NOTE | 2022-10-27 09:09 | Cat Scan Report ---
History: Left-sided neck tenderness, immunocompromised TECHNIQUE: Following injection of intravenous nonionic contrast the neck was imaged from the skull base through the thoracic inlet. Sagittal and coronal reformats were created. The radiation exposure was limited using dose reduction technology. FINDINGS: There is no evidence of neck mass or abscess. There are several small reactive lymph nodes in both sides of the neck, left greater than right. They are predominantly located posterior to the sternocleidomastoid muscles and the left supraclavicular fossa. They measure up to 1.6 cm. There is severe atherosclerotic disease in the right carotid bifurcation. There is a hemodynamically significant stenosis of the origin of the right internal carotid. Moderate stenosis is present in the left carotid bifurcation due to plaque. There is osteoarthritis in the neck and mild disc space narrowing at C5-6 and C6-7. Salivary glands appear normal. The larynx is deviated to the left of midline. There is no evidence of inflammation or mass in or adjacent to the larynx. Right lobe of the thyroid is mildly heterogeneous. There may be a nodule within it. There is moderately severe left and moderate right-sided maxillary sinusitis. IMPRESSION: Maxillary sinusitis Nonspecific reactive lymph nodes in both sides of the neck No neck abscess High-grade stenosis of the right internal carotid due to calcified plaque Dr. Hartman was called with the report Interpreted and Authenticated by: Edin Arnold 10/27/22
[2022-10-27] MEDS ORDERED: cefTRIAXone 1 GM VIAL IV SCH (10:00)
--- NOTE | 2022-10-27 10:09 | Internal Med Progress Note ---
SUBJECTIVE Subjective Patient information: Note initiated : 10/27/22 at 10:07 am Service Date, if different from initiated Date: [] Patient: Davis Terrazas 66 y/o M admitted on 10/25/22 for retaining water. Chief Complaint: [] Interval history: Mr. 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 Patient also had a recent cough and left neck tenderness. A normal LVEF, estimated to be 65 to 70%. Diastolic dysfunction however could not determine the grade of diastolic dysfunction, the right ventricle was moderate to severely dilated and the right ventricular systolic function appeared moderately reduced, Doppler findings was not suggestive of pulmonary hypertension. D-dimer was found to be elevated. A CTA chest did not show any evidence of pulmonary emboli, there was a right middle lobe infiltrate concerning for pneumonia, small pleural effusions, mild cardiomegaly and hepatosplenomegaly. A soft tissue neck CT with contrast showed nonspecific reactive lymph nodes on both sides of the neck, no abscess, there was high-grade stenosis of the right internal carotid due to calcified plaque. Urine protein to creatinine ratio was not consistent with nephrotic syndrome. Iron studies were normal. 10/27 Started the patient on ceftriaxone and azithromycin for probable right middle lobe pneumonia. Sodium level fluctuating, added on serum osmolality, urine sodium, urine osmolality, morning cortisol level. Lower extremity edema improved significantly since admission, continue diuresis with Lasix 40 mg IV twice daily. Physical exam Head: Atraumatic, normal inspection. Eyes: normal appearance, no scleral icterus. Neck: full ROM Respiratory: Left side tongue ulcer versus lesion, no respiratory distress. Cardiovascular: normal rate and rhythm, S1, S2. GI/Abdominal: Obesely distended, nontender, no guarding. Extremities: Bilateral lower extremity pitting edema improved since admission. Neurological: CN II-XII intact, intact motor, intact sensation. Psychiatric: normal mood. Skin: Circular wound on right lower extremity Constitutional Vitals: Vital Signs Temp Pulse Resp BP Pulse Ox O2 Del Method 97 F 65 22 166/66 100 10/27/22 08:00 10/27/22 10:00 10/27/22 10:00 10/27/22 10:00 10/27/22 10:00 10/27/22 08:00 Period Temp Pulse Resp BP Sys/Hurst Pulse Ox O2 Del Method O2 Flow Rate Last 24 Hr 97 F-98.2 F 65-65 13-24 102-166/54-79 96-100 Room Air-Room Air Intake and Output 10/26/22 10/27/22 10/27/22 19:59 03:59 11:59 Intake Total 570 Output Total 8229 826 3192 Balance -497 -475 -2200 Weight 109.769 kg 108.499 kg Intake & Output: Intake & Output 10/26/22 10/27/22 10/27/22 19:59 03:59 11:59 Intake Total 570 Output Total 6470 018 6137 Balance -497 -475 -2200 Weight 109.769 kg 108.499 kg Intake: Oral 570 Output: Void Amount 8232 510 0562 # of times incontinent of urine 2 Other: Meal Lunch Breakfast Percent of Meal Consumed 100% 100% Feeding Ability Independent Urine Appearance Clear Clear Clear Urine Color Bright Yellow Pale Bright Yellow Urine Odor Normal Normal # Voids 1 OBJ DATA Labs CBC & Chem 7: 10/27/22 03:52 10/27/22 09:46 Labs: Abnormal Lab Results 10/27/22 10/27/22 10/27/22 03:53 03:52 03:52 WBC RBC Hgb Hct POC Hct RDW Immature Gran % (Auto) Lymph % (Auto) Lymph # (Auto) Immature Gran # PT INR D-Dimer POC Sodium Sodium 120 L 121 L POC Potassium POC Chloride Chloride 89 L Carbon Dioxide POC Total CO2 POC BUN BUN 35 H Glucose POC Glucose Uric Acid 8.8 H Calcium 7.9 L POC WB Ioniz Calcium Direct Bilirubin Lactate Dehydrogenase 925 H NT-Pro-B Natriuret Pep Total Protein 5.5 L Globulin 2.0 L Procalcitonin 0.18 H TSH Ur Random Creatinine U [place] Prot/Creat Ratio 10/27/22 10/26/22 10/26/22 03:52 15:14 15:12 WBC 3.9 L RBC 2.86 L Hgb 8.4 L Hct 25.8 L POC Hct RDW 15.7 H Immature Gran % (Auto) 21.0 H Lymph % (Auto) 11.8 L Lymph # (Auto) 0.46 L Immature Gran # 0.82 H PT INR D-Dimer 1.05 H POC Sodium Sodium 121 L POC Potassium POC Chloride Chloride Carbon Dioxide POC Total CO2 POC BUN BUN Glucose POC Glucose Uric Acid Calcium POC WB Ioniz Calcium Direct Bilirubin Lactate Dehydrogenase NT-Pro-B Natriuret Pep Total Protein Globulin Procalcitonin TSH Ur Random Creatinine U [place] Prot/Creat Ratio 10/26/22 10/26/22 10/26/22 09:38 04:00 03:53 WBC RBC Hgb Hct POC Hct RDW Immature Gran % (Auto) Lymph % (Auto) Lymph # (Auto) Immature Gran # PT 16.7 H INR 1.3 H D-Dimer POC Sodium Sodium 116 L* 118 L* POC Potassium POC Chloride Chloride Carbon Dioxide POC Total CO2 POC BUN BUN Glucose POC Glucose Uric Acid Calcium POC WB Ioniz Calcium Direct Bilirubin Lactate Dehydrogenase NT-Pro-B Natriuret Pep Total Protein Globulin Procalcitonin TSH Ur Random Creatinine U [place] Prot/Creat Ratio 10/26/22 10/26/22 10/26/22 03:52 03:51 03:51 WBC RBC 2.94 L Hgb 8.8 L Hct 25.7 L POC Hct RDW 15.5 H Immature Gran % (Auto) 19.1 H Lymph % (Auto) 13.0 L Lymph # (Auto) 0.62 L Immature Gran # 0.91 H PT INR D-Dimer POC Sodium Sodium 120 L POC Potassium POC Chloride Chloride 89 L Carbon Dioxide 18 L POC Total CO2 POC BUN BUN 39 H Glucose 118 H POC Glucose Uric Acid 10.1 H Calcium 7.9 L POC WB Ioniz Calcium Direct Bilirubin Lactate Dehydrogenase 961 H NT-Pro-B Natriuret Pep Total Protein 5.4 L Globulin 1.8 L Procalcitonin TSH 7.88 H Ur Random Creatinine U [place] Prot/Creat Ratio 10/25/22 10/25/22 10/25/22 23:48 22:34 18:26 WBC RBC Hgb Hct POC Hct 30.0 L RDW Immature Gran % (Auto) Lymph % (Auto) Lymph # (Auto) Immature Gran # PT INR D-Dimer POC Sodium 116 L* Sodium 115 L* POC Potassium 5.3 H POC Chloride 90 L Chloride 85 L Carbon Dioxide 20 L POC Total CO2 18.0 L POC BUN 33 H BUN 31 H Glucose 123 H POC Glucose 113 H Uric Acid 10.3 H Calcium 8.0 L POC WB Ioniz Calcium 0.98 L Direct Bilirubin 0.3 H Lactate Dehydrogenase 970 H NT-Pro-B Natriuret Pep Total Protein 5.7 L Globulin 2.1 L Procalcitonin TSH Ur Random Creatinine 11.9 L U [place] Prot/Creat Ratio 0.34 H 10/25/22 10/25/22 18:16 18:16 WBC RBC 3.31 L Hgb 9.7 L Hct 28.8 L POC Hct RDW 15.7 H Immature Gran % (Auto) 17.0 H Lymph % (Auto) 14.7 L Lymph # (Auto) 1.09 L Immature Gran # 1.26 H PT INR D-Dimer POC Sodium Sodium POC Potassium POC Chloride Chloride Carbon Dioxide POC Total CO2 POC BUN BUN Glucose POC Glucose Uric Acid Calcium POC WB Ioniz Calcium Direct Bilirubin 0.3 H Lactate Dehydrogenase NT-Pro-B Natriuret Pep 5059.0 H Total Protein 5.8 L Globulin 1.9 L Procalcitonin TSH Ur Random Creatinine U [place] Prot/Creat Ratio Meds: Medications Acetaminophen (Acetaminophen 325 Mg Tablet) 650 mg PO Q6HP PRN; Protocol PRN Reason: Per Pain Protocol/Fever > 101 Hydrocodone Bitart/Acetaminophen (Hydrocodone/Apap 7.5/325mg Tablet) 1 tab PO BIDP PRN; Protocol PRN Reason: Per Pain Protocol Last Admin: 10/26/22 20:59 Dose: 1 tab Aspirin (Aspirin 81 Mg Tab.Chew) 81 mg PO HS MANDO Last Admin: 10/26/22 20:47 Dose: 81 mg Bacitracin (Bacitracin Topical Oint 15 Gm Tube) 1 dose TOPICAL BID MANDO Benzonatate (Benzonatate 100 Mg Capsule) 100 mg PO TIDP PRN PRN Reason: Cough Last Admin: 10/26/22 08:12 Dose: 100 mg Ceftriaxone Sodium (Ceftriaxone 1 Gm Vial) 1 gm IV Q24H MANDO; Protocol Dextrose (Dextrose 50% 50 Ml Vial) 0 ml IV UD PRN PRN Reason: Per Sliding Scale Diagnostic Test (Pha) (Accu-Chek 1 Each Strip) 1 each FS ACHS MANDO Last Admin: 10/27/22 07:35 Dose: 1 each Diphenhydramine HCl (Diphenhydramine 25 Mg Capsule) 50 mg PO HSP PRN PRN Reason: Insomnia Last Admin: 10/26/22 20:47 Dose: 50 mg Docusate Sodium (Docusate Sodium 100 Mg Capsule) 100 mg PO BID [facility] Last Admin: 10/27/22 08:59 Dose: Not Given Enoxaparin Sodium (Enoxaparin 40 Mg/0.4 Ml Syringe) 40 mg SQ DAILY [facility] Last Admin: 10/27/22 08:58 Dose: 40 mg Furosemide (Furosemide 40 Mg/4 Ml Vial) 40 mg IV BIDD [facility] Last Admin: 10/27/22 07:36 Dose: 40 mg Gabapentin (Gabapentin 300 Mg Capsule) 600 mg PO BID [facility] Last Admin: 10/27/22 08:59 Dose: Not Given Glucose (Dextrose 31 Gm Oral.Susp) 15 gm PO PRN PRN PRN Reason: Hypoglycemia Azithromycin 500 mg/ Dextrose 250 mls @ 250 mls/hr IV Q24H [facility]; Protocol Stop: 10/29/22 11:14 Insulin Human Lispro (Insulin Lispro 1 Unit/0.01 Ml Unit) 0 unit SQ ACHS [facility]; Protocol Last Admin: 10/27/22 07:36 Dose: Not Given Lactulose (Lactulose 20 Gm/30 Ml Oral.Franny) 10 gm PO DAILYP PRN PRN Reason: Constipation Levothyroxine Sodium (Levothyroxine 100 Mcg Tablet) 100 mcg PO 0730 [facility] Last Admin: 10/27/22 07:36 Dose: 100 mcg Lidocaine HCl (Lidocaine Viscous 2% 15 Ml Unit Dose Cup) 15 ml PO Q6H PRN PRN Reason: Mouth Sore Pain Ondansetron HCl (Ondansetron 4 Mg/2 Ml Vial) 4 mg IV Q4HP PRN; Protocol PRN Reason: Nausea And Vomiting Senna (Sennosides 1 Tablet) 2 tab PO HSP PRN PRN Reason: Constipation Sodium Chloride (0.9 % Sodium Chloride 10 Ml Syringe) 10 ml IV Q8 [facility] Last Admin: 10/27/22 05:57 Dose: 10 ml Tamsulosin HCl (Tamsulosin 0.4 Mg Capsule) 0.8 mg PO HS [facility] Last Admin: 10/26/22 20:46 Dose: 0.8 mg Thiamine HCl (Thiamine 100 Mg Tablet) 100 mg PO DAILY [facility] Last Admin: 10/27/22 08:59 Dose: 100 mg A/P Narrative A/P Narrative: Assessment: 66 year old male with a history not limited to hypertension, type 2 diabetes mellitus, hypothyroidism, FARZANEH, anemia, iron deficiency, primary myelofibrosis, liver granuloma, splenomegaly, BPH and obesity admitted for severe hypervolemic hyponatremia. The most likely underlying etiology for hypervolemic hyponatremia is heart failure, the TTE was suggestive of right ventricular failure. The patient was also taking Inrebic which she started about 4 weeks prior to admission and that medication is associated with hyponatremia. #Severe hypervolemic hyponatremia probably multifactorial due to Inrebic and right-sided heart failure #Anasarca likely secondary to right heart failure, improving with diuresis #Sore throat and a cough #Oral ulcer/lesion #Type 2 diabetes mellitus #Essential hypertension #Primary myelofibrosis #Chronic anemia #Splenomegaly #FARZANEH #BPH #Restless leg syndrome #Obesity #History of DVT Plan -Lasix 40 mg IV BID, probably transition to oral Lasix tomorrow. -Serum osmolality, serum sodium, urine osmolality, morning cortisol level. -Monitor sodium, avoid overcorrection. -Monitor renal function, electrolytes, and urine output. -Hold Inrebic for now as this is nonformulary can also cause hyponatremia.. -Correction sliding scale insulin low dose. -Viscous lidocaine as needed for tongue ulcer. -Tessalon Perles as needed. -Continue home Aspirin, gabapentin, levothyroxine, Flomax. -CPAP at bedtime. -Diabetic diet. -DVT prophylaxis: Lovenox -Disposition: home when stable, referral to cardiology for right ventricular failure, referral to oral maxillofacial surgery for tongue ulcer/lesion evaluation. Time Spent With Patient Time: Total time spent is greater than 50% in coordination of care (as documented) at patient's floor/unit and/or counseling patient:
[2022-10-27] MEDS ORDERED: AZITHROMYCIN 500 MG in DEXTROSE 5% IN WATER 250 ML IV SCH (11:00)
[2022-10-27] MEDS: LIDOCAINE VISCOUS 2% 15 ML UNIT DOSE CUP PO PRN (15:41)
[2022-10-27 16:59] LABS: Sodium, Urine Random 63 mmol/L
[2022-10-27 17:15] LABS: Osmolality,Urine 395 mOSM/kg (80-1000)
[2022-10-27] MEDS ORDERED: NICOTINE POLACRILEX 2 MG GUM CHEW/PARK PRN (18:31)
[2022-10-27] MEDS: diphenhydrAMINE 25 MG CAPSULE PO PRN (20:21)
[2022-10-27] MEDS: TAMSULOSIN 0.4 MG CAPSULE PO SCH (20:21)
[2022-10-27] MEDS: ASPIRIN 81 MG TAB.CHEW PO SCH (20:21)
[2022-10-27] MEDS: BACITRACIN TOPICAL OINT 15 GM TUBE TOPICAL SCH (20:22)
[2022-10-27] MEDS: NICOTINE 21 MG PATCH TOPICAL SCH (20:23)
[2022-10-28] MEDS: SUCRETS LOZENGE PO PRN ×3 (02:03→07:53)
[2022-10-28] MEDS: LIDOCAINE VISCOUS 2% 15 ML UNIT DOSE CUP PO PRN (04:13)
[2022-10-28 06:57] LABS: Basophils # (Auto) 0.05 K/mcL (0.00-0.30); Basophils % (Auto) 1.9 % (0.0-2.0); Eosinophils # (Auto) 0.01 K/mcL (0.00-0.70); Eosinophils % (Auto) 0.4 % (0.0-7.0); Hematocrit 23.5 % (40.1-51.0); Hemoglobin 7.4 g/dL (13.7-17.5); Lymphocytes # (Auto) 0.36 K/mcL (1.50-4.80); Lymphocytes % (Auto) 13.6 % (15.5-49.0); Mean Cell Volume 92.5 fL (80.0-100.0); Mean Corpuscular HGB Conc 31.5 g/dL (31.0-36.0); Mean Platelet Volume 9.3 fL (8.8-12.5); Monocytes # (Auto) 0.22 K/mcL (0.10-0.90); Monocytes % (Auto) 8.3 % (1.0-12.0); Neutrophils % (Auto) 60.3 % (38.0-78.0); Platelet Count 222 K/mcL (140-440); RBC 2.54 M/mcL (4.63-6.08); Red Cell Distribution Width 15.5 % (11.5-14.5); WBC 2.7 K/mcL (4.5-11.0)
[2022-10-28 07:30] LABS: ALT/SGPT 22 U/L (<40); AST/SGOT 21 U/L (<40); Albumin 3.4 gm/dL (3.2-5.2); Albumin/Globulin Ratio 1.7 (1.0-2.3); Alkaline Phosphatase 103 U/L (39-117); Bilirubin,Direct 0.2 mg/dL (<0.3); Bilirubin,Total 0.5 mg/dL (0.1-1.0); Blood Urea Nitrogen 33 mg/dL (8-23); Calcium 8.1 mg/dL (8.6-10.4); Carbon Dioxide 23 mmol/L (22-30); Chloride 89 mmol/L (96-108); Glomerular Filtration Rate 91; Glucose 123 mg/dL (70-105); Lactate Dehydrogenase 938 U/L (135-225); Phosphorous 3.7 mg/dL (2.5-4.5); Triglycerides 86 mg/dL (<150); Uric Acid 7.6 mg/dL (2.5-8.0)
[2022-10-28] MEDS: LEVOTHYROXINE 100 MCG TABLET PO SCH (07:46)
[2022-10-28] MEDS: 0.9 % SODIUM CHLORIDE 10 ML SYRINGE IV SCH ×3 (07:46→21:07)
[2022-10-28] MEDS: INSULIN LISPRO 1 UNIT/0.01 ML UNIT SQ SCH ×4 (07:49→20:53)
[2022-10-28] MEDS: FUROSEMIDE 40 MG/4 ML VIAL IV SCH (09:19)
[2022-10-28] MEDS: CEFDINIR 300 MG CAPSULE PO SCH ×2 (09:21→20:56)
[2022-10-28] MEDS: THIAMINE 100 MG TABLET PO SCH (09:21)
[2022-10-28] MEDS: AZITHROMYCIN 250 MG TABLET PO SCH (09:21)
[2022-10-28] MEDS: DOCUSATE SODIUM 100 MG CAPSULE PO SCH ×2 (09:22→20:56)
[2022-10-28] MEDS: NICOTINE 21 MG PATCH TOPICAL SCH (09:22)
[2022-10-28] MEDS: ENOXAPARIN 40 MG/0.4 ML SYRINGE SQ SCH (09:23)
[2022-10-28] MEDS: GABAPENTIN 300 MG CAPSULE PO SCH ×2 (09:23→20:54)
[2022-10-28] MEDS: BACITRACIN TOPICAL OINT 15 GM TUBE TOPICAL SCH ×2 (09:32→20:56)
[2022-10-28] MEDS: BENZOCAINE 20% PO PRN ×2 (13:00→19:01)
[2022-10-28] MEDS ORDERED: SODIUM CHLORIDE 3 % 100 ML IV ONE (13:11)
--- NOTE | 2022-10-28 13:19 | Internal Med Progress Note ---
SUBJECTIVE Subjective Patient information: Note initiated : 10/28/22 at 1:15 pm Service Date, if different from initiated Date: [] Patient: Davis Terrazas 66 y/o M admitted on 10/25/22 for retaining water. Chief Complaint: [] Interval history: Mr. 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 Patient also had a recent cough and left neck tenderness. A normal LVEF, estimated to be 65 to 70%. Diastolic dysfunction however could not determine the grade of diastolic dysfunction, the right ventricle was moderate to severely dilated and the right ventricular systolic function appeared moderately reduced, Doppler findings was not suggestive of pulmonary hypertension. D-dimer was found to be elevated. A CTA chest did not show any evidence of pulmonary emboli, there was a right middle lobe infiltrate concerning for pneumonia, small pleural effusions, mild cardiomegaly and hepatosplenomegaly. A soft tissue neck CT with contrast showed nonspecific reactive lymph nodes on both sides of the neck, no abscess, there was high-grade stenosis of the right internal carotid due to calcified plaque. Urine protein to creatinine ratio was not consistent with nephrotic syndrome. Iron studies were normal. 10/27 Started the patient on ceftriaxone and azithromycin for probable right middle lobe pneumonia. Sodium level fluctuating, added on serum osmolality, urine sodium, urine osmolality, morning cortisol level. Lower extremity edema improved significantly since admission, continue diuresis with Lasix 40 mg IV twice daily. 10/28 Sodium level overall improved but still in the upper teens and lower 20s. Volume status has improved, transition to oral Lasix 40 mg twice daily. Hypertonic 3% saline 100 mL IV today and monitor sodium level. Serum osmolality low, urine sodium was 63, urine osmolality was 395. TSH was mildly elevated at 7.88. Morning cortisol was normal. Physical exam Head: Atraumatic, normal inspection. Eyes: normal appearance, no scleral icterus. Neck: full ROM Respiratory: Left side tongue ulcer versus lesion, no respiratory distress. Cardiovascular: normal rate and rhythm, S1, S2. GI/Abdominal: Obesely distended, nontender, no guarding. Extremities: Bilateral lower extremity pitting edema significantly improved since admission. Neurological: CN II-XII intact, intact motor, intact sensation. Psychiatric: normal mood. Skin: Circular wound on right lower extremity Constitutional Vitals: Vital Signs Temp Pulse Resp BP Pulse Ox O2 Del Method 98.3 F 58 L 18 128/67 99 10/28/22 12:01 10/28/22 03:08 10/28/22 12:01 10/28/22 12:01 10/28/22 12:01 10/28/22 08:00 Period Temp Pulse Resp BP Sys/Hurst Pulse Ox O2 Del Method O2 Flow Rate Last 24 Hr 97.2 F-98.9 F 58-71 12- 102-135/51-88 92-100 Room Air-Room Air, CPAP Intake and Output 10/28/22 10/28/22 10/28/22 03:59 11:59 19:59 Intake Total 200 600 Output Total 500 2600 375 Balance -300 -1999 -375 Weight 98.747 kg Intake & Output: Intake & Output 10/28/22 10/28/22 10/28/22 03:59 11:59 19:59 Intake Total 200 600 Output Total 500 2600 375 Balance -300 -1999 -375 Weight 98.747 kg Intake: Oral 200 600 Output: Void Amount 500 2600 375 Other: Meal Nourishment/Supplement Breakfast Percent of Meal Consumed 100% 100% Feeding Ability Independent Independent Urine Appearance Clear Clear Clear Urine Color Yellow Bright Yellow Bright Yellow Urine Odor Normal Normal OBJ DATA Labs CBC & Chem 7: 10/28/22 12:07 10/28/22 05:34 Labs: Abnormal Lab Results 10/28/22 10/28/22 10/28/22 12:07 05:34 05:34 WBC 2.7 L RBC 2.54 L Hgb 8.0 L 7.4 L Hct 23.5 L POC Hct RDW 15.5 H Immature Gran % (Auto) 15.5 H Lymph % (Auto) 13.6 L Lymph # (Auto) 0.36 L Immature Gran # 0.41 H Absolute Neutrophils 1.60 L PT INR D-Dimer POC Sodium Sodium 119 L* POC Potassium POC Chloride Chloride 89 L Carbon Dioxide POC Total CO2 Anion Gap 7.0 L POC BUN BUN 33 H Glucose 123 H POC Glucose Osmolality Uric Acid Calcium 8.1 L POC WB Ioniz Calcium Direct Bilirubin Lactate Dehydrogenase 938 H NT-Pro-B Natriuret Pep Total Protein 5.4 L Globulin 2.0 L Procalcitonin TSH Ur Random Creatinine U [place] Prot/Creat Ratio 10/27/22 10/27/22 10/27/22 15:36 09:46 09:46 WBC RBC Hgb Hct POC Hct RDW Immature Gran % (Auto) Lymph % (Auto) Lymph # (Auto) Immature Gran # Absolute Neutrophils PT INR D-Dimer POC Sodium Sodium 121 L 117 L* POC Potassium POC Chloride Chloride Carbon Dioxide POC Total CO2 Anion Gap POC BUN BUN Glucose POC Glucose Osmolality 271 L Uric Acid Calcium POC WB Ioniz Calcium Direct Bilirubin Lactate Dehydrogenase NT-Pro-B Natriuret Pep Total Protein Globulin Procalcitonin TSH Ur Random Creatinine U [place] Prot/Creat Ratio 10/27/22 10/27/22 10/27/22 03:53 03:52 03:52 WBC RBC Hgb Hct POC Hct RDW Immature Gran % (Auto) Lymph % (Auto) Lymph # (Auto) Immature Gran # Absolute Neutrophils PT INR D-Dimer POC Sodium Sodium 120 L 121 L POC Potassium POC Chloride Chloride 89 L Carbon Dioxide POC Total CO2 Anion Gap POC BUN BUN 35 H Glucose POC Glucose Osmolality Uric Acid 8.8 H Calcium 7.9 L POC WB Ioniz Calcium Direct Bilirubin Lactate Dehydrogenase 925 H NT-Pro-B Natriuret Pep Total Protein 5.5 L Globulin 2.0 L Procalcitonin 0.18 H TSH Ur Random Creatinine U [place] Prot/Creat Ratio 10/27/22 10/26/22 10/26/22 03:52 15:14 15:12 WBC 3.9 L RBC 2.86 L Hgb 8.4 L Hct 25.8 L POC Hct RDW 15.7 H Immature Gran % (Auto) 21.0 H Lymph % (Auto) 11.8 L Lymph # (Auto) 0.46 L Immature Gran # 0.82 H Absolute Neutrophils PT INR D-Dimer 1.05 H POC Sodium Sodium 121 L POC Potassium POC Chloride Chloride Carbon Dioxide POC Total CO2 Anion Gap POC BUN BUN Glucose POC Glucose Osmolality Uric Acid Calcium POC WB Ioniz Calcium Direct Bilirubin Lactate Dehydrogenase NT-Pro-B Natriuret Pep Total Protein Globulin Procalcitonin TSH Ur Random Creatinine U [place] Prot/Creat Ratio 10/26/22 10/26/22 10/26/22 09:38 04:00 03:53 WBC RBC Hgb Hct POC Hct RDW Immature Gran % (Auto) Lymph % (Auto) Lymph # (Auto) Immature Gran # Absolute Neutrophils PT 16.7 H INR 1.3 H D-Dimer POC Sodium Sodium 116 L* 118 L* POC Potassium POC Chloride Chloride Carbon Dioxide POC Total CO2 Anion Gap POC BUN BUN Glucose POC Glucose Osmolality Uric Acid Calcium POC WB Ioniz Calcium Direct Bilirubin Lactate Dehydrogenase NT-Pro-B Natriuret Pep Total Protein Globulin Procalcitonin TSH Ur Random Creatinine U [place] Prot/Creat Ratio 10/26/22 10/26/22 10/26/22 03:52 03:51 03:51 WBC RBC 2.94 L Hgb 8.8 L Hct 25.7 L POC Hct RDW 15.5 H Immature Gran % (Auto) 19.1 H Lymph % (Auto) 13.0 L Lymph # (Auto) 0.62 L Immature Gran # 0.91 H Absolute Neutrophils PT INR D-Dimer POC Sodium Sodium 120 L POC Potassium POC Chloride Chloride 89 L Carbon Dioxide 18 L POC Total CO2 Anion Gap POC BUN BUN 39 H Glucose 118 H POC Glucose Osmolality Uric Acid 10.1 H Calcium 7.9 L POC WB Ioniz Calcium Direct Bilirubin Lactate Dehydrogenase 961 H NT-Pro-B Natriuret Pep Total Protein 5.4 L Globulin 1.8 L Procalcitonin TSH 7.88 H Ur Random Creatinine U [place] Prot/Creat Ratio 10/25/22 10/25/22 10/25/22 23:48 22:34 18:26 WBC RBC Hgb Hct POC Hct 30.0 L RDW Immature Gran % (Auto) Lymph % (Auto) Lymph # (Auto) Immature Gran # Absolute Neutrophils PT INR D-Dimer POC Sodium 116 L* Sodium 115 L* POC Potassium 5.3 H POC Chloride 90 L Chloride 85 L Carbon Dioxide 20 L POC Total CO2 18.0 L Anion Gap POC BUN 33 H BUN 31 H Glucose 123 H POC Glucose 113 H Osmolality Uric Acid 10.3 H Calcium 8.0 L POC WB Ioniz Calcium 0.98 L Direct Bilirubin 0.3 H Lactate Dehydrogenase 970 H NT-Pro-B Natriuret Pep Total Protein 5.7 L Globulin 2.1 L Procalcitonin TSH Ur Random Creatinine 11.9 L U [place] Prot/Creat Ratio 0.34 H 10/25/22 10/25/22 18:16 18:16 WBC RBC 3.31 L Hgb 9.7 L Hct 28.8 L POC Hct RDW 15.7 H Immature Gran % (Auto) 17.0 H Lymph % (Auto) 14.7 L Lymph # (Auto) 1.09 L Immature Gran # 1.26 H Absolute Neutrophils PT INR D-Dimer POC Sodium Sodium POC Potassium POC Chloride Chloride Carbon Dioxide POC Total CO2 Anion Gap POC BUN BUN Glucose POC Glucose Osmolality Uric Acid Calcium POC WB Ioniz Calcium Direct Bilirubin 0.3 H Lactate Dehydrogenase NT-Pro-B Natriuret Pep 5059.0 H Total Protein 5.8 L Globulin 1.9 L Procalcitonin TSH Ur Random Creatinine U [place] Prot/Creat Ratio Meds: Medications Acetaminophen (Acetaminophen 325 Mg Tablet) 650 mg PO Q6HP PRN; Protocol PRN Reason: Per Pain Protocol/Fever > 101 Last Admin: 10/27/22 21:26 Dose: 650 mg Hydrocodone Bitart/Acetaminophen (Hydrocodone/Apap 7.5/325mg Tablet) 1 tab PO BIDP PRN; Protocol PRN Reason: Per Pain Protocol Last Admin: 10/27/22 17:02 Dose: 1 tab Aspirin (Aspirin 81 Mg Tab.Chew) 81 mg PO HS [facility] Last Admin: 10/27/22 20:21 Dose: 81 mg Azithromycin (Azithromycin 250 Mg Tablet) 500 mg PO DAILY [facility]; Protocol Stop: 10/30/22 08:59 Last Admin: 10/28/22 09:21 Dose: 500 mg Bacitracin (Bacitracin Topical Oint 15 Gm Tube) 1 dose TOPICAL BID [facility] Last Admin: 10/28/22 09:32 Dose: 1 dose Benzonatate (Benzonatate 100 Mg Capsule) 100 mg PO TIDP PRN PRN Reason: Cough Last Admin: 10/26/22 08:12 Dose: 100 mg Dextrose (Dextrose 50% 50 Ml Vial) 0 ml IV UD PRN PRN Reason: Per Sliding Scale Diagnostic Test (Pha) (Accu-Chek 1 Each Strip) 1 each FS ACHS [facility] Last Admin: 10/28/22 12:04 Dose: 1 each Diphenhydramine HCl (Diphenhydramine 25 Mg Capsule) 50 mg PO HSP PRN PRN Reason: Insomnia Last Admin: 10/27/22 20:21 Dose: 50 mg Docusate Sodium (Docusate Sodium 100 Mg Capsule) 100 mg PO BID [facility] Last Admin: 01/01/23 09:22 Dose: 100 mg Enoxaparin Sodium (Enoxaparin 40 Mg/0.4 Ml Syringe) 40 mg SQ DAILY [facility] Last Admin: 10/28/22 09:23 Dose: 40 mg Furosemide (Furosemide 40 Mg Tablet) 40 mg PO BIDD [facility] Gabapentin (Gabapentin 300 Mg Capsule) 600 mg PO BID [facility] Last Admin: 10/28/22 09:23 Dose: Not Given Glucose (Dextrose 31 Gm Oral.Susp) 15 gm PO PRN PRN PRN Reason: Hypoglycemia Sodium Chloride (Sodium Chloride 3%) 100 mls @ 20 mls/hr IV ONCE ONE Stop: 10/28/22 18:10 Insulin Human Lispro (Insulin Lispro 1 Unit/0.01 Ml Unit) 0 unit SQ ACHS [facility]; Protocol Last Admin: 10/28/22 12:04 Dose: Not Given Lactulose (Lactulose 20 Gm/30 Ml Oral.Franny) 10 gm PO DAILYP PRN PRN Reason: Constipation Levothyroxine Sodium (Levothyroxine 100 Mcg Tablet) 100 mcg PO 0730 [facility] Last Admin: 10/28/22 07:46 Dose: 100 mcg Lidocaine HCl (Lidocaine Viscous 2% 15 Ml Unit Dose Cup) 15 ml PO Q6HP PRN PRN Reason: Mouth Sore Pain Last Admin: 10/28/22 04:13 Dose: 15 ml Nicotine (Nicotine 21 Mg Patch) 21 mg TOPICAL DAILY@1000 [facility] Last Admin: 10/28/22 09:22 Dose: 21 mg Nicotine Polacrilex (Nicotine Polacrilex 2 Mg Gum) 2 mg CHEW/PARK Q4HP PRN PRN Reason: nicotine withdrawal Ondansetron HCl (Ondansetron 4 Mg/2 Ml Vial) 4 mg IV Q4HP PRN; Protocol PRN Reason: Nausea And Vomiting Last Admin: 10/27/22 12:08 Dose: 4 mg Benzocaine 20% [ (Anbesol] Liquid) 1 dose PO Q6HP PRN PRN Reason: Mouth Sore Pain Last Admin: 10/28/22 13:00 Dose: 1 dose Senna (Sennosides 1 Tablet) 2 tab PO HSP PRN PRN Reason: Constipation Sodium Chloride (0.9 % Sodium Chloride 10 Ml Syringe) 10 ml IV Q8 [facility] Last Admin: 10/28/22 07:46 Dose: 10 ml Tamsulosin HCl (Tamsulosin 0.4 Mg Capsule) 0.8 mg PO HS [facility] Last Admin: 10/27/22 20:21 Dose: 0.8 mg Thiamine HCl (Thiamine 100 Mg Tablet) 100 mg PO DAILY [facility] Last Admin: 10/28/22 09:21 Dose: 100 mg A/P Narrative A/P Narrative: Assessment: 66 year old male with a history not limited to hypertension, type 2 diabetes mellitus, hypothyroidism, FARZANEH, anemia, iron deficiency, primary myelofibrosis, liver granuloma, splenomegaly, BPH and obesity admitted for severe hypervolemic hyponatremia. The most likely underlying etiology for hypervolemic hyponatremia is heart failure, the TTE was suggestive of right ventricular failure. The patient was also taking Inrebic which she started about 4 weeks prior to admission and that medication is associated with hyponatremia. #Improved hypervolemic hyponatremia probably multifactorial #Resolving volume overload likely secondary to right heart failure #Right community-acquired middle lobe pneumonia #Sore throat and a cough #Oral ulcer/lesion #Type 2 diabetes mellitus #Essential hypertension #Primary myelofibrosis on Inrebic #Chronic anemia #Splenomegaly #FARZANEH #BPH #Restless leg syndrome #Obesity #History of DVT #High-grade stenosis of right internal carotid artery, asymptomatic Plan -Transition to Lasix 40 mg p.o. twice daily, discontinue IV Lasix. -Hypertonic saline today, monitor sodium level. -Monitor sodium, avoid overcorrection. -Monitor renal function, electrolytes, and urine output. -Hold Inrebic for now as this is nonformulary can also cause hyponatremia. -Transition to cefdinir and oral azithromycin, discontinue ceftriaxone and IV azithromycin. -Correction sliding scale insulin low dose. -Viscous benzocaine as needed for tongue ulcer. -Tessalon Perles as needed. -Continue home Aspirin, gabapentin, levothyroxine, Flomax. -CPAP at bedtime. -Carotid artery duplex to further evaluate incidental stenosis noted on CT scan. -Diabetic diet/fluid restriction. -DVT prophylaxis: Lovenox -Disposition: home when stable, possibly tomorrow. Referral to cardiology for right ventricular failure, referral to oral maxillofacial surgery for tongue ulcer/lesion evaluation. Referral to vascular surgery for high-grade stenosis of right internal carotid artery. Time Spent With Patient Time: Total time spent is greater than 50% in coordination of care (as documented) at patient's floor/unit and/or counseling patient:
[2022-10-28] MEDS ORDERED: CARBOXYMETHYLCELLULOSE SODIUM 1 EACH DROPER.GEL OU PRN (15:55)
[2022-10-28] MEDS: FUROSEMIDE 40 MG TABLET PO SCH (16:19)
--- NOTE | 2022-10-28 18:11 | Ultrasound Report ---
CLINICAL INFORMATION: Atherosclerosis in the carotid arteries with hemodynamically significant stenosis of the right internal carotid seen on recent CT COMPARISON: CT on 10/26/22 Findings: There is a large amount of calcified plaque in the right carotid bifurcation extending into the proximal and mid internal carotid. Normal flow velocities are present in the right common carotid. The lumen of the proximal right internal carotid is obscured by overlying dense calcified plaque. No flow is seen in this segment. Distal to the calcified plaque, the waveform patterns are dampened and peak systolic flow velocity is 30 cm/s in the proximal internal carotid. In the mid internal carotid the peak systolic flow velocity is 90 cm/s and distal internal carotid is 88 cm/s. There is a 50-69% stenosis at the origin of the right external carotid with a peak systolic flow velocity of 215 cm/s. Moderate amount calcified plaque is present in the left carotid bifurcation. Normal flow velocities are present in the common and internal carotids. There is a mildly elevated peak systolic flow velocity 185 cm/s in the left external carotid. These findings correlate well with those on the recent CT scan. Antegrade flow is present in both vertebral arteries. IMPRESSION: Approximately 90% stenosis of the proximal right internal carotid due to large amount densely calcified plaque. Interpreted and Authenticated by: Edin Arnold 10/28/22
[2022-10-28] MEDS: HYDROCODONE/APAP 7.5/325MG TABLET PO PRN (19:00)
[2022-10-28] MEDS: diphenhydrAMINE 25 MG CAPSULE PO PRN (20:54)
[2022-10-28] MEDS: ASPIRIN 81 MG TAB.CHEW PO SCH (20:55)
[2022-10-28] MEDS: TAMSULOSIN 0.4 MG CAPSULE PO SCH (20:55)
[2022-10-29] MEDS: 0.9 % SODIUM CHLORIDE 10 ML SYRINGE IV SCH ×3 (05:54→20:41)
[2022-10-29] MEDS: HYDROCODONE/APAP 7.5/325MG TABLET PO PRN ×3 (05:54→18:52)
[2022-10-29 06:37] LABS: ALT/SGPT 31 U/L (<40); AST/SGOT 27 U/L (<40); Albumin 3.5 gm/dL (3.2-5.2); Albumin/Globulin Ratio 1.8 (1.0-2.3); Alkaline Phosphatase 108 U/L (39-117); Bilirubin,Direct 0.2 mg/dL (<0.3); Bilirubin,Total 0.7 mg/dL (0.1-1.0); Blood Urea Nitrogen 22 mg/dL (8-23); Carbon Dioxide 23 mmol/L (22-30); Chloride 94 mmol/L (96-108); Glomerular Filtration Rate 87; Glucose 111 mg/dL (70-105); Lactate Dehydrogenase 942 U/L (135-225); Phosphorous 3.3 mg/dL (2.5-4.5); Triglycerides 113 mg/dL (<150); Uric Acid 7.7 mg/dL (2.5-8.0)
[2022-10-29] MEDS: LEVOTHYROXINE 100 MCG TABLET PO SCH (07:49)
[2022-10-29] MEDS: FUROSEMIDE 40 MG TABLET PO SCH ×2 (07:49→16:11)
[2022-10-29] MEDS: INSULIN LISPRO 1 UNIT/0.01 ML UNIT SQ SCH ×4 (07:52→20:48)
[2022-10-29] MEDS: GABAPENTIN 300 MG CAPSULE PO SCH ×2 (09:38→20:41)
--- NOTE | 2022-10-29 10:13 | Internal Med Progress Note ---
SUBJECTIVE Subjective Patient information: Note initiated : 10/29/22 at 10:09 am Service Date, if different from initiated Date: [] Patient: Davis Terrazas 66 y/o M admitted on 10/25/22 for retaining water. Chief Complaint: [] Interval history: Mr. 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 Patient also had a recent cough and left neck tenderness. A normal LVEF, estimated to be 65 to 70%. Diastolic dysfunction however could not determine the grade of diastolic dysfunction, the right ventricle was moderate to severely dilated and the right ventricular systolic function appeared moderately reduced, Doppler findings was not suggestive of pulmonary hypertension. D-dimer was found to be elevated. A CTA chest did not show any evidence of pulmonary emboli, there was a right middle lobe infiltrate concerning for pneumonia, small pleural effusions, mild cardiomegaly and hepatosplenomegaly. A soft tissue neck CT with contrast showed nonspecific reactive lymph nodes on both sides of the neck, no abscess, there was high-grade stenosis of the right internal carotid due to calcified plaque. Urine protein to creatinine ratio was not consistent with nephrotic syndrome. Iron studies were normal. 10/27 Started the patient on ceftriaxone and azithromycin for probable right middle lobe pneumonia. Sodium level fluctuating, added on serum osmolality, urine sodium, urine osmolality, morning cortisol level. Lower extremity edema improved significantly since admission, continue diuresis with Lasix 40 mg IV twice daily. 10/28 Sodium level overall improved but still in the upper teens and lower 20s. Volume status has improved, transition to oral Lasix 40 mg twice daily. Hypertonic 3% saline 100 mL IV today and monitor sodium level. Serum osmolality low, urine sodium was 63, urine osmolality was 395. TSH was mildly elevated at 7.88. Morning cortisol was normal. / Sodium level has increased to 126. Today the patient has new right knee pain and an effusion, will perform arthrocentesis today. Carotid artery showed approximately 90% stenosis of the proximal right internal carotid artery due to large amount of densely calcified plaque. Physical exam Head: Atraumatic, normal inspection. Eyes: normal appearance, no scleral icterus. Neck: full ROM Respiratory: Left side tongue ulcer versus lesion, no respiratory distress. Cardiovascular: normal rate and rhythm, S1, S2. GI/Abdominal: Obesely distended, nontender, no guarding. Extremities: Right knee effusion, mild bilateral lower extremity edema. Neurological: CN II-XII intact, intact motor, intact sensation. Psychiatric: normal mood. Skin: Circular wound on right lower extremity Constitutional Vitals: Vital Signs Temp Pulse Resp BP Pulse Ox O2 Del Method O2 Flow Rate 99.0 F 67 19 138/65 97 CPAP 0 10/29/22 08:00 10/29/22 08:28 10/29/22 10:00 10/29/22 10:00 10/29/22 10:00 10/29/22 10:00 10/29/22 04:45 Period Temp Pulse Resp BP Sys/Hurst Pulse Ox O2 Del Method O2 Flow Rate Last 24 Hr 97.6 F-99.0 F 57-72 15- 123-140/64-76 94-100 CPAP-Room Air, CPAP 0-0 Intake and Output 10/28/22 10/29/22 10/29/22 19:59 03:59 11:59 Intake Total 200 690 Output Total 1550 700 Balance -1350 -10 Weight 93.44 kg Intake & Output: Intake & Output 10/28/22 10/29/22 10/29/22 19:59 03:59 11:59 Intake Total 200 690 Output Total 1550 700 Balance -1350 -10 Weight 93.44 kg Intake: IV 100 Sodium Chloride 3% 100 ml @ 20 100 mls/hr IV ONCE ONE Rx#: [id number] Oral 100 690 Output: Void Amount 1550 700 Other: Meal Dinner Breakfast Percent of Meal Consumed 75% 100% Feeding Ability Independent Independent Urine Appearance Clear Clear Urine Color Yellow Dark Yellow Urine Odor Normal Normal OBJ DATA Labs CBC & Chem 7: 10/28/22 12:07 10/29/22 05:35 Labs: Abnormal Lab Results 10/29/22 10/28/22 10/28/22 05:35 19:07 12:07 WBC RBC Hgb 8.0 L Hct RDW Immature Gran % (Auto) Lymph % (Auto) Lymph # (Auto) Immature Gran # Absolute Neutrophils D-Dimer Sodium 126 L 122 L Chloride 94 L Anion Gap BUN Glucose 111 H Osmolality Uric Acid Calcium 8.0 L Lactate Dehydrogenase 942 H Total Protein 5.5 L Globulin 2.0 L Procalcitonin 10/28/22 10/28/22 10/27/22 05:34 05:34 15:36 WBC 2.7 L RBC 2.54 L Hgb 7.4 L Hct 23.5 L RDW 15.5 H Immature Gran % (Auto) 15.5 H Lymph % (Auto) 13.6 L Lymph # (Auto) 0.36 L Immature Gran # 0.41 H Absolute Neutrophils 1.60 L D-Dimer Sodium 119 L* 121 L Chloride 89 L Anion Gap 7.0 L BUN 33 H Glucose 123 H Osmolality Uric Acid Calcium 8.1 L Lactate Dehydrogenase 938 H Total Protein 5.4 L Globulin 2.0 L Procalcitonin 10/27/22 10/27/22 10/27/22 09:46 09:46 03:53 WBC RBC Hgb Hct RDW Immature Gran % (Auto) Lymph % (Auto) Lymph # (Auto) Immature Gran # Absolute Neutrophils D-Dimer Sodium 117 L* 120 L Chloride Anion Gap BUN Glucose Osmolality 271 L Uric Acid Calcium Lactate Dehydrogenase Total Protein Globulin Procalcitonin 10/27/22 10/27/22 10/27/22 03:52 03:52 03:52 WBC 3.9 L RBC 2.86 L Hgb 8.4 L Hct 25.8 L RDW 15.7 H Immature Gran % (Auto) 21.0 H Lymph % (Auto) 11.8 L Lymph # (Auto) 0.46 L Immature Gran # 0.82 H Absolute Neutrophils D-Dimer Sodium 121 L Chloride 89 L Anion Gap BUN 35 H Glucose Osmolality Uric Acid 8.8 H Calcium 7.9 L Lactate Dehydrogenase 925 H Total Protein 5.5 L Globulin 2.0 L Procalcitonin 0.18 H 10/26/22 10/26/22 10/26/22 15:14 15:12 09:38 WBC RBC Hgb Hct RDW Immature Gran % (Auto) Lymph % (Auto) Lymph # (Auto) Immature Gran # Absolute Neutrophils D-Dimer 1.05 H Sodium 121 L 116 L* Chloride Anion Gap BUN Glucose Osmolality Uric Acid Calcium Lactate Dehydrogenase Total Protein Globulin Procalcitonin Meds: Medications Acetaminophen (Acetaminophen 325 Mg Tablet) 650 mg PO Q6HP PRN; Protocol PRN Reason: Per Pain Protocol/Fever > 101 Last Admin: 10/27/22 21:26 Dose: 650 mg Hydrocodone Bitart/Acetaminophen (Hydrocodone/Apap 7.5/325mg Tablet) 1 tab PO B IDP PRN; Protocol PRN Reason: Per Pain Protocol Last Admin: 10/29/22 05:54 Dose: 1 tab Artificial Tears (Carboxymethylcellulose Sodium 1 Each Droper.Gel) 1 each OU PRN PRN PRN Reason: Dry Eye(s) Last Admin: 10/28/22 16:19 Dose: 1 each Aspirin (Aspirin 81 Mg Tab.Chew) 81 mg PO HS [facility] Last Admin: 10/28/22 20:55 Dose: 81 mg Azithromycin (Azithromycin 250 Mg Tablet) 500 mg PO DAILY [facility]; Protocol Stop: 10/30/22 08:59 Last Admin: 10/28/22 09:21 Dose: 500 mg Bacitracin (Bacitracin Topical Oint 15 Gm Tube) 1 dose TOPICAL BID [facility] Last Admin: 10/28/22 20:56 Dose: Not Given Benzonatate (Benzonatate 100 Mg Capsule) 100 mg PO TIDP PRN PRN Reason: Cough Last Admin: 10/26/22 08:12 Dose: 100 mg Dextrose (Dextrose 50% 50 Ml Vial) 0 ml IV UD PRN PRN Reason: Per Sliding Scale Diagnostic Test (Pha) (Accu-Chek 1 Each Strip) 1 each FS ACHS [facility] Last Admin: 10/29/22 07:52 Dose: 1 each Diphenhydramine HCl (Diphenhydramine 25 Mg Capsule) 50 mg PO HSP PRN PRN Reason: Insomnia Last Admin: 10/28/22 20:54 Dose: 50 mg Docusate Sodium (Docusate Sodium 100 Mg Capsule) 100 mg PO BID [facility] Last Admin: 10/28/22 20:56 Dose: 100 mg Enoxaparin Sodium (Enoxaparin 40 Mg/0.4 Ml Syringe) 40 mg SQ DAILY [facility] Last Admin: 10/28/22 09:23 Dose: 40 mg Furosemide (Furosemide 40 Mg Tablet) 40 mg PO BIDD [facility] Last Admin: 10/29/22 07:49 Dose: 40 mg Gabapentin (Gabapentin 300 Mg Capsule) 600 mg PO BID [facility] Last Admin: 10/29/22 09:38 Dose: Not Given Glucose (Dextrose 31 Gm Oral.Susp) 15 gm PO PRN PRN PRN Reason: Hypoglycemia Insulin Human Lispro (Insulin Lispro 1 Unit/0.01 Ml Unit) 0 unit SQ ACHS [facility]; Protocol Last Admin: 10/29/22 07:52 Dose: Not Given Lactulose (Lactulose 20 Gm/30 Ml Oral.Franny) 10 gm PO DAILYP PRN PRN Reason: Constipation Levothyroxine Sodium (Levothyroxine 100 Mcg Tablet) 100 mcg PO 0730 [facility] Last Admin: 10/29/22 07:49 Dose: 100 mcg Lidocaine HCl (Lidocaine Viscous 2% 15 Ml Unit Dose Cup) 15 ml PO Q6HP PRN PRN Reason: Mouth Sore Pain Last Admin: 10/28/22 04:13 Dose: 15 ml Nicotine (Nicotine 21 Mg Patch) 21 mg TOPICAL DAILY@1000 [facility] Last Admin: 10/28/22 09:22 Dose: 21 mg Nicotine Polacrilex (Nicotine Polacrilex 2 Mg Gum) 2 mg CHEW/PARK Q4HP PRN PRN Reason: nicotine withdrawal Ondansetron HCl (Ondansetron 4 Mg/2 Ml Vial) 4 mg IV Q4HP PRN; Protocol PRN Reason: Nausea And Vomiting Last Admin: 10/27/22 12:08 Dose: 4 mg Benzocaine 20% [ (Anbesol] Liquid) 1 dose PO Q6HP PRN PRN Reason: Mouth Sore Pain Last Admin: 10/28/22 19:01 Dose: 1 dose Senna (Sennosides 1 Tablet) 2 tab PO HSP PRN PRN Reason: Constipation Sodium Chloride (0.9 % Sodium Chloride 10 Ml Syringe) 10 ml IV Q8 [facility] Last Admin: 10/29/22 05:54 Dose: 10 ml Tamsulosin HCl (Tamsulosin 0.4 Mg Capsule) 0.8 mg PO HS [facility] Last Admin: 10/28/22 20:55 Dose: 0.8 mg Thiamine HCl (Thiamine 100 Mg Tablet) 100 mg PO DAILY [facility] Last Admin: 10/28/22 09:21 Dose: 100 mg A/P Narrative A/P Narrative: Assessment: 66 year old male with a history not limited to hypertension, type 2 diabetes mellitus, hypothyroidism, FARZANEH, anemia, iron deficiency, primary myelofi brosis, liver granuloma, splenomegaly, BPH and obesity admitted for severe hypervolemic hyponatremia. The most likely underlying etiology for hypervolemic hyponatremia is heart failure, the TTE was suggestive of right ventricular failure. The patient was also taking Inrebic which she started about 4 weeks prior to admission and that medication is associated with hyponatremia. #Improved hypervolemic hyponatremia probably multifactorial #Resolving volume overload likely secondary to right heart failure #Right community-acquired middle lobe pneumonia #Right knee pain and effusion #Sore throat and a cough #Oral ulcer/lesion #Type 2 diabetes mellitus #Essential hypertension #Primary myelofibrosis on Inrebic #Chronic anemia #Splenomegaly #FARZANEH #BPH #Restless leg syndrome #Obesity #History of DVT #High-grade stenosis of right internal carotid artery, asymptomatic Plan -Right knee arthrocentesis and laboratory work-up to include cell count, gram stain and culture, crystals. -Continue Lasix 40 mg p.o. twice daily. -Monitor sodium, avoid overcorrection. -Monitor renal function, electrolytes, and urine output. -Hold Inrebic for now as this is nonformulary can also cause hyponatremia. -Continue cefdinir and oral azithromycin. -Correction sliding scale insulin low dose. -Viscous benzocaine as needed for tongue ulcer. -Tessalon Perles as needed. -Continue home Aspirin, gabapentin, levothyroxine, Flomax. -CPAP at bedtime. -Diabetic diet/fluid restriction. -DVT prophylaxis: Lovenox -Disposition: home when stable, possibly tomorrow. Referral to cardiology for right ventricular failure, referral to oral maxillofacial surgery for tongue ulcer/lesion evaluation. Referral to vascular surgery for high-grade stenosis of right internal carotid artery. Follow-up with oncology for myelofibrosis. Time Spent With Patient Time: Total time spent is greater than 50% in coordination of care (as documented) at patient's floor/unit and/or counseling patient:
[2022-10-29] MEDS: CEFDINIR 300 MG CAPSULE PO SCH ×2 (10:19→20:42)
[2022-10-29] MEDS: THIAMINE 100 MG TABLET PO SCH (10:19)
[2022-10-29] MEDS: ENOXAPARIN 40 MG/0.4 ML SYRINGE SQ SCH (10:19)
[2022-10-29] MEDS: DOCUSATE SODIUM 100 MG CAPSULE PO SCH ×2 (10:19→20:41)
[2022-10-29] MEDS: AZITHROMYCIN 250 MG TABLET PO SCH (10:20)
[2022-10-29] MEDS: NICOTINE 21 MG PATCH TOPICAL SCH (10:20)
[2022-10-29] MEDS: BACITRACIN TOPICAL OINT 15 GM TUBE TOPICAL SCH ×2 (10:20→20:49)
[2022-10-29] MEDS: SODIUM CHLORIDE 1 GM TABLET PO SCH ×2 (10:26→20:41)
--- NOTE | 2022-10-29 13:54 | Procedure Note ---
PROC Joint Aspiration/Injection Joint Asp./Inject. 1: Consent obtained: verbal consent and written consent Date of Procedure: 10/29/22 Time out performed: Yes Side of body: right Joint aspirated: knee Ultrasound guidance: Yes Skin prep: Chlorhexidine Local anesthesia used: lidocaine 1% Amount of anesthesia used (mLs): 7 Fluid obtained: turbid Total fluid obtained (mLs): 60 Patient tolerated procedure: well and no complications Additional comments: The first 50 mL of fluid was turbulent, no blood, however the last 10 mL of aspirated fluid was bloody.
[2022-10-29] MEDS ORDERED: COLCHICINE 0.6 MG CAPSULE PO ONE (16:44)
[2022-10-29] MEDS ORDERED: KETOROLAC 30 MG/ML VIAL IV PRN (16:49)
[2022-10-29 17:32] LABS: Appearance,Synovial Fluid Hazy; Color,Synovial Fluid Yellow; Lymphocytes,Synovial Fluid 0 %; Neutrophils,Synovial Fluid 100 % (0-25); Nucleated Cells,Synovial Fld 3450 /cumm; Other Cells,Synovial Fluid 0 %
[2022-10-29] MEDS: BENZOCAINE 20% PO PRN (17:38)
[2022-10-29] MEDS: NAPROXEN 250 MG TABLET PO SCH (18:51)
[2022-10-29] MEDS: ASPIRIN 81 MG TAB.CHEW PO SCH (20:40)
[2022-10-29] MEDS: TAMSULOSIN 0.4 MG CAPSULE PO SCH (20:41)
[2022-10-29] MEDS: PANTOPRAZOLE 40 MG TABLET PO SCH (20:41)
[2022-10-29] MEDS ORDERED: COLCHICINE 0.6 MG CAPSULE PO SCH (21:00)
[2022-10-30] MEDS: HYDROCODONE/APAP 7.5/325MG TABLET PO PRN ×3 (00:54→16:04)
[2022-10-30] MEDS: 0.9 % SODIUM CHLORIDE 10 ML SYRINGE IV SCH ×3 (04:33→20:15)
[2022-10-30 06:56] LABS: Albumin 3.3 gm/dL (3.2-5.2); Calcium 8.2 mg/dL (8.6-10.4); Phosphorous 3.3 mg/dL (2.5-4.5)
[2022-10-30 06:57] LABS: Basophils # (Auto) 0.02 K/mcL (0.00-0.30); Basophils % (Auto) 1.3 % (0.0-2.0); Eosinophils # (Auto) 0.01 K/mcL (0.00-0.70); Eosinophils % (Auto) 0.7 % (0.0-7.0); Hematocrit 20.4 % (40.1-51.0); Hemoglobin 6.4 g/dL (13.7-17.5); Lymphocytes # (Auto) 0.22 K/mcL (1.50-4.80); Lymphocytes % (Auto) 14.8 % (15.5-49.0); Mean Cell Volume 93.6 fL (80.0-100.0); Mean Corpuscular HGB Conc 31.4 g/dL (31.0-36.0); Monocytes # (Auto) 0.17 K/mcL (0.10-0.90); Monocytes % (Auto) 11.4 % (1.0-12.0); Platelet Count 150 K/mcL (140-440); RBC 2.18 M/mcL (4.63-6.08); Red Cell Distribution Width 15.5 % (11.5-14.5); WBC 1.5 K/mcL (4.5-11.0)
[2022-10-30] MEDS: LEVOTHYROXINE 100 MCG TABLET PO SCH (07:41)
[2022-10-30] MEDS: FUROSEMIDE 40 MG TABLET PO SCH ×2 (07:41→16:04)
[2022-10-30] MEDS: NAPROXEN 250 MG TABLET PO SCH (07:41)
[2022-10-30] MEDS: INSULIN LISPRO 1 UNIT/0.01 ML UNIT SQ SCH ×4 (07:43→20:22)
[2022-10-30 08:09] LABS: Basophils # (Auto) 0.01 K/mcL (0.00-0.30); Basophils % (Auto) 0.7 % (0.0-2.0); Eosinophils # (Auto) 0 K/mcL (0.00-0.70); Eosinophils % (Auto) 0 % (0.0-7.0); Hematocrit 20.6 % (40.1-51.0); Hemoglobin 6.6 g/dL (13.7-17.5); Lymphocytes # (Auto) 0.24 K/mcL (1.50-4.80); Lymphocytes % (Auto) 16.6 % (15.5-49.0); Mean Platelet Volume 8.9 fL (8.8-12.5); Monocytes # (Auto) 0.09 K/mcL (0.10-0.90); Monocytes % (Auto) 6.2 % (1.0-12.0); Neutrophils % (Auto) 59.3 % (38.0-78.0); Platelet Count 158 K/mcL (140-440); RBC 2.24 M/mcL (4.63-6.08); Red Cell Distribution Width 15.4 % (11.5-14.5); WBC 1.5 K/mcL (4.5-11.0)
[2022-10-30] MEDS: THIAMINE 100 MG TABLET PO SCH (08:42)
[2022-10-30] MEDS: ENOXAPARIN 40 MG/0.4 ML SYRINGE SQ SCH (08:42)
[2022-10-30] MEDS: GABAPENTIN 300 MG CAPSULE PO SCH ×2 (08:42→20:14)
[2022-10-30] MEDS: LOSARTAN 50 MG TABLET PO SCH (08:42)
[2022-10-30] MEDS: DOCUSATE SODIUM 100 MG CAPSULE PO SCH ×2 (08:42→20:13)
[2022-10-30] MEDS: predniSONE 20 MG TABLET PO SCH (08:43)
[2022-10-30] MEDS: CEFDINIR 300 MG CAPSULE PO SCH ×2 (08:43→20:14)
[2022-10-30] MEDS: SODIUM CHLORIDE 1 GM TABLET PO SCH ×2 (08:43→20:14)
[2022-10-30] MEDS: BACITRACIN TOPICAL OINT 15 GM TUBE TOPICAL SCH ×2 (08:43→20:15)
[2022-10-30] MEDS ORDERED: 0.9 % SODIUM CHLORIDE 250 ML IV SCH (08:45)
[2022-10-30] MEDS ORDERED: LIDOCAINE 1% IJ ONE (10:07)
--- NOTE | 2022-10-30 10:51 | Internal Med Progress Note ---
SUBJECTIVE Subjective Patient information: Note initiated : 10/30/22 at 10:45 am Service Date, if different from initiated Date: [] Patient: Davis Terrazas 66 y/o M admitted on 10/25/22 for retaining water. Chief Complaint: [] Interval history: Mr. 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 Patient also had a recent cough and left neck tenderness. A normal LVEF, estimated to be 65 to 70%. Diastolic dysfunction however could not determine the grade of diastolic dysfunction, the right ventricle was moderate to severely dilated and the right ventricular systolic function appeared moderately reduced, Doppler findings was not suggestive of pulmonary hypertension. D-dimer was found to be elevated. A CTA chest did not show any evidence of pulmonary emboli, there was a right middle lobe infiltrate concerning for pneumonia, small pleural effusions, mild cardiomegaly and hepatosplenomegaly. A soft tissue neck CT with contrast showed nonspecific reactive lymph nodes on both sides of the neck, no abscess, there was high-grade stenosis of the right internal carotid due to calcified plaque. Urine protein to creatinine ratio was not consistent with nephrotic syndrome. Iron studies were normal. 10/27 Started the patient on ceftriaxone and azithromycin for probable right middle lobe pneumonia. Sodium level fluctuating, added on serum osmolality, urine sodium, urine osmolality, morning cortisol level. Lower extremity edema improved significantly since admission, continue diuresis with Lasix 40 mg IV twice daily. 10/28 Sodium level overall improved but still in the upper teens and lower 20s. Volume status has improved, transition to oral Lasix 40 mg twice daily. Hypertonic 3% saline 100 mL IV today and monitor sodium level. Serum osmolality low, urine sodium was 63, urine osmolality was 395. TSH was mildly elevated at 7.88. Morning cortisol was normal. 10/29 Sodium level has increased to 126. Today the patient has new right knee pain and an effusion, will perform arthrocentesis today. Carotid artery showed approximately 90% stenosis of the proximal right internal carotid artery due to large amount of densely calcified plaque. Arthrocentesis work-up positive for c alcium pyrophosphate synovial fluid. Started naproxen 500 mg twice daily. 10/30 Hemoglobin dropped to 6.6 this morning, will transfuse 1 unit of red blood cells. Right knee swelling reoccurred. Radiology consulted to perform arthrocentesis, cell count to evaluate for hemarthrosis. Will consult or thopedic surgery to evaluate right knee. Physical exam Head: Atraumatic, normal inspection. Eyes: normal appearance, no scleral icterus. Neck: full ROM Respiratory: Left side tongue ulcer versus lesion, no respiratory distress. Cardiovascular: normal rate and rhythm, S1, S2. GI/Abdominal: Obesely distended, nontender, no guarding. Extremities: Right knee effusion, mild bilateral lower extremity edema. Neurological: CN II-XII intact, intact motor, intact sensation. Psychiatric: normal mood. Skin: Circular wound on right lower extremity Constitutional Vitals: Vital Signs Temp Pulse Resp BP Pulse Ox O2 Del Method O2 Flow Rate 98.3 F 63 18 133/73 96 0 10/30/22 08:00 10/30/22 08:00 10/30/22 08:00 10/30/22 08:00 10/30/22 08:00 10/30/22 08:00 10/29/22 04:45 Period Temp Pulse Resp BP Sys/Hurst Pulse Ox O2 Del Method O2 Flow Rate Last 24 Hr 98.1 F-98.5 F 57-77 18-24 114-148/60-77 93-98 Room Air-Room Air, CPAP Intake and Output 10/29/22 10/30/22 10/30/22 19:59 03:59 11:59 Intake Total 700 Output Total 950 675 Balance -950 25 Weight 91.036 kg Intake & Output: Intake & Output 10/29/22 10/30/22 10/30/22 19:59 03:59 11:59 Intake Total 700 Output Total 950 675 Balance -950 25 Weight 91.036 kg Intake: Oral 700 Output: Void Amount 950 675 Other: Meal Dinner Percent of Meal Consumed 25% Urine Appearance Clear Clear Urine Color Yellow Bright Yellow Urine Odor Normal OBJ DATA Labs CBC & Chem 7: 10/30/22 07:33 10/30/22 05:41 Labs: Abnormal Lab Results 10/30/22 10/30/22 10/30/22 07:33 05:41 05:40 WBC 1.5 L 1.5 L RBC 2.24 L 2.18 L Hgb 6.6 L* 6.4 L* Hct 20.6 L* 20.4 L* RDW 15.4 H 15.5 H Immature Gran % (Auto) 17.2 H 14.8 H Lymph % (Auto) 14.8 L Lymph # (Auto) 0.24 L 0.22 L [place] # (Auto) 0.09 L Immature Gran # 0.25 H 0.22 H Absolute Neutrophils 0.86 L* 0.85 L* Sodium 128 L Chloride 95 L Anion Gap BUN 26 H Glucose 110 H Osmolality Calcium 8.2 L Lactate Dehydrogenase Total Protein Globulin Fluid Crystals Synovial Neutrophils 10/29/22 10/29/22 10/29/22 15:00 14:04 05:35 WBC RBC Hgb Hct RDW Immature Gran % (Auto) Lymph % (Auto) Lymph # (Auto) [place] # (Auto) Immature Gran # Absolute Neutrophils Sodium 126 L Chloride 94 L Anion Gap BUN Glucose 111 H Osmolality Calcium 8.0 L Lactate Dehydrogenase 942 H Total Protein 5.5 L Globulin 2.0 L Fluid Crystals Ca pyrophosphate A Synovial Neutrophils 100 H 10/28/22 10/28/22 10/28/22 19:07 12:07 05:34 WBC RBC Hgb 8.0 L Hct RDW Immature Gran % (Auto) Lymph % (Auto) Lymph # (Auto) [place] # (Auto) Immature Gran # Absolute Neutrophils Sodium 122 L 119 L* Chloride 89 L Anion Gap 7.0 L BUN 33 H Glucose 123 H Osmolality Calcium 8.1 L Lactate Dehydrogenase 938 H Total Protein 5.4 L Globulin 2.0 L Fluid Crystals Synovial Neutrophils 10/28/22 10/27/22 10/27/22 05:34 15:36 09:46 WBC 2.7 L RBC 2.54 L Hgb 7.4 L Hct 23.5 L RDW 15.5 H Immature Gran % (Auto) 15.5 H Lymph % (Auto) 13.6 L Lymph # (Auto) 0.36 L [place] # (Auto) Immature Gran # 0.41 H Absolute Neutrophils 1.60 L Sodium 121 L Chloride Anion Gap BUN Glucose Osmolality 271 L Calcium Lactate Dehydrogenase Total Protein Globulin Fluid Crystals Synovial Neutrophils Meds: Medications Acetaminophen (Acetaminophen 325 Mg Tablet) 650 mg PO Q6HP PRN; Protocol PRN Reason: Per Pain Protocol/Fever > 101 Last Admin: 10/27/22 21:26 Dose: 650 mg Hydrocodone Bitart/Acetaminophen (Hydrocodone/Apap 7.5/325mg Tablet) 1 tab PO Q6HP PRN; Protocol PRN Reason: Per Pain Protocol Last Admin: 10/30/22 08:42 Dose: 1 tab Artificial Tears (Carboxymethylcellulose Sodium 1 Each Droper.Gel) 1 each OU PRN PRN PRN Reason: Dry Eye(s) Last Admin: 10/28/22 16:19 Dose: 1 each Aspirin (Aspirin 81 Mg Tab.Chew) 81 mg PO HS [facility] Last Admin: 10/29/22 20:40 Dose: 81 mg Bacitracin (Bacitracin Topical Oint 15 Gm Tube) 1 dose TOPICAL BID [facility] Last Admin: 10/30/22 08:43 Dose: 1 dose Benzonatate (Benzonatate 100 Mg Capsule) 100 mg PO TIDP PRN PRN Reason: Cough Last Admin: 10/26/22 08:12 Dose: 100 mg Dextrose (Dextrose 50% 50 Ml Vial) 0 ml IV UD PRN PRN Reason: Per Sliding Scale Diagnostic Test (Pha) (Accu-Chek 1 Each Strip) 1 each FS ACHS [facility] Last Admin: 10/30/22 07:42 Dose: 1 each Diphenhydramine HCl (Diphenhydramine 25 Mg Capsule) 50 mg PO HSP PRN PRN Reason: Insomnia Last Admin: 10/28/22 20:54 Dose: 50 mg Docusate Sodium (Docusate Sodium 100 Mg Capsule) 100 mg PO BID [facility] Last Admin: 10/30/22 08:42 Dose: 100 mg Enoxaparin Sodium (Enoxaparin 40 Mg/0.4 Ml Syringe) 40 mg SQ DAILY [facility] Last Admin: 10/30/22 08:42 Dose: 40 mg Furosemide (Furosemide 40 Mg Tablet) 40 mg PO BIDD [facility] Last Admin: 10/30/22 07:41 Dose: 40 mg Gabapentin (Gabapentin 300 Mg Capsule) 600 mg PO BID [facility] Last Admin: 10/30/22 08:42 Dose: 600 mg Glucose (Dextrose 31 Gm Oral.Susp) 15 gm PO PRN PRN PRN Reason: Hypoglycemia Sodium Chloride (Sodium Chloride 0.9%) 250 mls @ 20 mls/hr IV .[id number] [facility] Stop: 10/30/22 21:14 Insulin Human Lispro (Insulin Lispro 1 Unit/0.01 Ml Unit) 0 unit SQ ACHS [facility]; Protocol Last Admin: 10/30/22 07:43 Dose: Not Given Lactulose (Lactulose 20 Gm/30 Ml Oral.Franny) 10 gm PO DAILYP PRN PRN Reason: Constipation Levothyroxine Sodium (Levothyroxine 100 Mcg Tablet) 100 mcg PO 0730 [facility] Last Admin: 10/30/22 07:41 Dose: 100 mcg Lidocaine HCl (Lidocaine Viscous 2% 15 Ml Unit Dose Cup) 15 ml PO Q6HP PRN PRN Reason: Mouth Sore Pain Last Admin: 10/28/22 04:13 Dose: 15 ml Losartan Potassium (Losartan 50 Mg Tablet) 50 mg PO DAILY [facility] Last Admin: 10/30/22 08:42 Dose: 50 mg Nicotine (Nicotine 21 Mg Patch) 21 mg TOPICAL DAILY@1000 [facility] Last Admin: 10/29/22 10:20 Dose: 21 mg Nicotine Polacrilex (Nicotine Polacrilex 2 Mg Gum) 2 mg CHEW/PARK Q4HP PRN PRN Reason: nicotine withdrawal Ondansetron HCl (Ondansetron 4 Mg/2 Ml Vial) 4 mg IV Q4HP PRN; Protocol PRN Reason: Nausea And Vomiting Last Admin: 10/27/22 12:08 Dose: 4 mg Pantoprazole Sodium (Pantoprazole 40 Mg Tablet) 40 mg PO [facility] Last Admin: 10/29/22 20:41 Dose: 40 mg Benzocaine 20% [ (Anbesol] Liquid) 1 dose PO Q6HP PRN PRN Reason: Mouth Sore Pain Last Admin: 10/29/22 17:38 Dose: 1 dose [facility] ([facility] Mg [facility]t) [facility] Last Admin: 10/30/22 08:43 Dose: 40 mg Senna (Sennosides 1 Tablet) 2 tab PO HSP PRN PRN Reason: Constipation Sodium Chloride (0.9 % Sodium Chloride 10 Ml Syringe) 10 ml IV Q8 [facility] Last Admin: 10/30/22 04:33 Dose: 10 ml Sodium Chloride (Sodium Chloride 1 Gm Tablet) 1 gm PO BID [facility] Last Admin: 10/30/22 08:43 Dose: 1 gm Tamsulosin HCl (Tamsulosin 0.4 Mg Capsule) 0.8 mg PO [facility] Last Admin: 10/29/22 20:41 Dose: 0.8 mg Thiamine HCl (Thiamine 100 Mg Tablet) 100 mg PO DAILY [facility] Last Admin: 10/30/22 08:42 Dose: 100 mg A/P Narrative A/P Narrative: Assessment: 66 year old male with a history not limited to hypertension, type 2 diabetes mellitus, hypothyroidism, FARZANEH, anemia, iron deficiency, primary myel ofibrosis, liver granuloma, splenomegaly, BPH and obesity admitted for severe hypervolemic hyponatremia. The underlying etiology for hypervolemic hyponatremia was felt to be heart failure and possibly an aerobic. The TTE was suggestive of right ventricular failure. The patient was also taking Inrebic which she started about 4 weeks prior to admission and that medication is associated with hyponatremia. The patient's sodium gradually improved with diuresis and later sodium replacement. Patient developed a right knee effusion, a right knee arthrocentesis #Improved hypervolemic hyponatremia probably multifactorial #Right community-acquired middle lobe pneumonia #Right knee pain and effusion, positive for calcium pyrophosphate #Acute on chronic anemia #Resolving volume overload likely secondary to right heart failure #Oral ulcer/lesion #Type 2 diabetes mellitus #Essential hypertension #Primary myelofibrosis on Inrebic #Chronic anemia #Splenomegaly #FARZANEH #BPH #Restless leg syndrome #Obesity #History of DVT #High-grade stenosis of right internal carotid artery, asymptomatic Plan -Transfuse 1 unit RBC, follow hemoglobin later today and tomorrow. -Radiology for right knee arthrocentesis, ordered synovial cell count. -Orthopedic surgery to evaluate right knee effusion. -Start prednisone 40 mg daily for right knee effusion possibly secondary to acute pseudogout. -Discontinue Naproxen given. the drop in hemoglobin. -Continue Lasix 40 mg p.o. twice daily. -Monitor sodium, avoid overcorrection. -Monitor renal function, electrolytes, and urine output. -Hold Inrebic for now as this is nonformulary can also cause hyponatremia. -Complete pneumonia treatment with cefdinir and oral azithromycin. -Correction sliding scale insulin low dose. -Viscous benzocaine as needed for tongue ulcer. -Tessalon Perles as needed. -Sodium tablet twice daily. -Continue home Aspirin, gabapentin, levothyroxine, Flomax. -CPAP at bedtime. -Diabetic diet/fluid restriction. -DVT prophylaxis: Lovenox -Disposition: home when stable, possibly tomorrow. Referral to cardiology for right ventricular failure, referral to oral maxillofacial surgery for tongue ulcer/lesion evaluation. Referral to vascular surgery for high-grade stenosis of right internal carotid artery. Follow-up with oncology for myelofibrosis. Time Spent With Patient Time: Total time spent is greater than 50% in coordination of care (as documented) at patient's floor/unit and/or counseling patient:
[2022-10-30] MEDS: NICOTINE 21 MG PATCH TOPICAL SCH (11:13)
--- NOTE | 2022-10-30 13:14 | Internal Med Progress Note ---
SUBJECTIVE Subjective Patient information: Note initiated : 10/30/22 at 1:09 pm Service Date, if different from initiated Date: [] Patient: Davis Terrazas 66 y/o M admitted on 10/25/22 for retaining water. Chief Complaint: [] Interval history: Mr. 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 Patient also had a recent cough and left neck tenderness. A normal LVEF, estimated to be 65 to 70%. Diastolic dysfunction however could not determine the grade of diastolic dysfunction, the right ventricle was moderate to severely dilated and the right ventricular systolic function appeared moderately reduced, Doppler findings was not suggestive of pulmonary hypertension. D-dimer was found to be elevated. A CTA chest did not show any evidence of pulmonary emboli, there was a right middle lobe infiltrate concerning for pneumonia, small pleural effusions, mild cardiomegaly and hepatosplenomegaly. A soft tissue neck CT with contrast showed nonspecific reactive lymph nodes on both sides of the neck, no abscess, there was high-grade stenosis of the right internal carotid due to calcified plaque. Urine protein to creatinine ratio was not consistent with nephrotic syndrome. Iron studies were normal. 10/27 Started the patient on ceftriaxone and azithromycin for probable right middle lobe pneumonia. Sodium level fluctuating, added on serum osmolality, urine sodium, urine osmolality, morning cortisol level. Lower extremity edema improved significantly since admission, continue diuresis with Lasix 40 mg IV twice daily. 10/28 Sodium level overall improved but still in the upper teens and lower 20s. Volume status has improved, transition to oral Lasix 40 mg twice daily. Hypertonic 3% saline 100 mL IV today and monitor sodium level. Serum osmolality low, urine sodium was 63, urine osmolality was 395. TSH was mildly elevated at 7.88. Morning cortisol was normal. 10/29 Sodium level has increased to 126. Today the patient has new right knee pain and an effusion, will perform arthrocentesis today. Carotid artery showed approximately 90% stenosis of the proximal right internal carotid artery due to large amount of densely calcified plaque. Arthrocentesis work-up positive for ca lcium pyrophosphate synovial fluid. Started naproxen 500 mg twice daily. 10/30 Hemoglobin dropped to 6.6 this morning, will transfuse 1 unit of red blood cells. Right knee swelling reoccurred. Radiology consulted to perform arthrocentesis, cell count to evaluate for hemarthrosis. Will consult ort hopedic surgery to evaluate right knee. 10/31 Constitutional Vitals: Vital Signs Temp Pulse Resp BP Pulse Ox O2 Del Method O2 Flow Rate 97.4 F 66 18 122/64 97 0 10/30/22 12:00 10/30/22 12:00 10/30/22 12:00 10/30/22 12:00 10/30/22 12:00 10/30/22 12:00 10/29/22 04:45 Period Temp Pulse Resp BP Sys/Hurst Pulse Ox O2 Del Method O2 Flow Rate Last 24 Hr 97.4 F-98.5 F 57-77 18-24 114-148/64-77 93-98 Room Air-Room Air, CPAP Intake and Output 10/30/22 10/30/22 10/30/22 03:59 11:59 19:59 Intake Total 700 Output Total 675 300 500 Balance 25 -300 -500 Intake & Output: Intake & Output 10/30/22 10/30/22 10/30/22 03:59 11:59 19:59 Intake Total 700 Output Total 675 300 500 Balance 25 -300 -500 Intake: Oral 700 Output: Void Amount 675 300 500 Other: Urine Appearance Clear Clear Clear Urine Color Bright Yellow Yellow Yellow Urine Odor Normal Exam: General: Alert, Awake, No acute Distress Eyes/N/T: EOMI, Head/Neck: neck supple, CV: RRR, No murmurs, Pulm: Clear b/l, no wheezing/rhonchi/rales Abd: soft, Obesely distended,, nontender, +BS x4 Ext: no clubbing/cyanosis, Right knee effusion, mild bilateral lower extremity edema. Neuro: Alert, no focal deficits, moves all extremities, Skin: warm/dry OBJ DATA Labs CBC & Chem 7: 10/30/22 07:33 10/30/22 05:41 Labs: Abnormal Lab Results 10/30/22 10/30/22 10/30/22 07:33 05:41 05:40 WBC 1.5 L 1.5 L RBC 2.24 L 2.18 L Hgb 6.6 L* 6.4 L* Hct 20.6 L* 20.4 L* RDW 15.4 H 15.5 H Immature Gran % (Auto) 17.2 H 14.8 H Lymph % (Auto) 14.8 L Lymph # (Auto) 0.24 L 0.22 L [place] # (Auto) 0.09 L Immature Gran # 0.25 H 0.22 H Absolute Neutrophils 0.86 L* 0.85 L* Sodium 128 L Chloride 95 L Anion Gap BUN 26 H Glucose 110 H Osmolality Calcium 8.2 L Lactate Dehydrogenase Total Protein Globulin Fluid Crystals Synovial Neutrophils 10/29/22 10/29/22 10/29/22 15:00 14:04 05:35 WBC RBC Hgb Hct RDW Immature Gran % (Auto) Lymph % (Auto) Lymph # (Auto) [place] # (Auto) Immature Gran # Absolute Neutrophils Sodium 126 L Chloride 94 L Anion Gap BUN Glucose 111 H Osmolality Calcium 8.0 L Lactate Dehydrogenase 942 H Total Protein 5.5 L Globulin 2.0 L Fluid Crystals Ca pyrophosphate A Synovial Neutrophils 100 H 10/28/22 10/28/22 10/28/22 19:07 12:07 05:34 WBC RBC Hgb 8.0 L Hct RDW Immature Gran % (Auto) Lymph % (Auto) Lymph # (Auto) [place] # (Auto) Immature Gran # Absolute Neutrophils Sodium 122 L 119 L* Chloride 89 L Anion Gap 7.0 L BUN 33 H Glucose 123 H Osmolality Calcium 8.1 L Lactate Dehydrogenase 938 H Total Protein 5.4 L Globulin 2.0 L Fluid Crystals Synovial Neutrophils 10/28/22 10/27/22 10/27/22 05:34 15:36 09:46 WBC 2.7 L RBC 2.54 L Hgb 7.4 L Hct 23.5 L RDW 15.5 H Immature Gran % (Auto) 15.5 H Lymph % (Auto) 13.6 L Lymph # (Auto) 0.36 L [place] # (Auto) Immature Gran # 0.41 H Absolute Neutrophils 1.60 L Sodium 121 L Chloride Anion Gap BUN Glucose Osmolality 271 L Calcium Lactate Dehydrogenase Total Protein Globulin Fluid Crystals Synovial Neutrophils Meds: Medications Acetaminophen (Acetaminophen 325 Mg Tablet) 650 mg PO Q6HP PRN; Protocol PRN Reason: Per Pain Protocol/Fever > 101 Last Admin: 10/27/22 21:26 Dose: 650 mg Hydrocodone Bitart/Acetaminophen (Hydrocodone/Apap 7.5/325mg Tablet) 1 tab PO Q6HP PRN; Protocol PRN Reason: Per Pain Protocol Last Admin: 10/30/22 08:42 Dose: 1 tab Artificial Tears (Carboxymethylcellulose Sodium 1 Each Droper.Gel) 1 each OU PRN PRN PRN Reason: Dry Eye(s) Last Admin: 10/28/22 16:19 Dose: 1 each Aspirin (Aspirin 81 Mg Tab.Chew) 81 mg PO HS [facility] Last Admin: 10/29/22 20:40 Dose: 81 mg Bacitracin (Bacitracin Topical Oint 15 Gm Tube) 1 dose TOPICAL BID [facility] Last Admin: 10/30/22 08:43 Dose: 1 dose Benzonatate (Benzonatate 100 Mg Capsule) 100 mg PO TIDP PRN PRN Reason: Cough Last Admin: 10/26/22 08:12 Dose: 100 mg Dextrose (Dextrose 50% 50 Ml Vial) 0 ml IV UD PRN PRN Reason: Per Sliding Scale Diagnostic Test (Pha) (Accu-Chek 1 Each Strip) 1 each FS ACHS [facility] Last Admin: 10/30/22 11:13 Dose: 1 each Diphenhydramine HCl (Diphenhydramine 25 Mg Capsule) 50 mg PO HSP PRN PRN Reason: Insomnia Last Admin: 10/28/22 20:54 Dose: 50 mg Docusate Sodium (Docusate Sodium 100 Mg Capsule) 100 mg PO BID [facility] Last Admin: 10/30/22 08:42 Dose: 100 mg Enoxaparin Sodium (Enoxaparin 40 Mg/0.4 Ml Syringe) 40 mg SQ DAILY [facility] Last Admin: 10/30/22 08:42 Dose: 40 mg Furosemide (Furosemide 40 Mg Tablet) 40 mg PO BIDD [facility] Last Admin: 10/30/22 07:41 Dose: 40 mg Gabapentin (Gabapentin 300 Mg Capsule) 600 mg PO BID [facility] Last Admin: 10/30/22 08:42 Dose: 600 mg Glucose (Dextrose 31 Gm Oral.Susp) 15 gm PO PRN PRN PRN Reason: Hypoglycemia Sodium Chloride (Sodium Chloride 0.9%) 250 mls @ 20 mls/hr IV .[id number] [facility] Stop: 10/30/22 21:14 Last Admin: 10/30/22 11:10 Dose: 20 mls/hr Insulin Human Lispro (Insulin Lispro 1 Unit/0.01 Ml Unit) 0 unit SQ [facility]; Protocol Last Admin: 10/30/22 11:13 Dose: Not Given Lactulose (Lactulose 20 Gm/30 Ml Oral.Franny) 10 gm PO DAILYP PRN PRN Reason: Constipation Levothyroxine Sodium (Levothyroxine 100 Mcg Tablet) 100 mcg PO 0730 [facility] Last Admin: 10/30/22 07:41 Dose: 100 mcg Lidocaine HCl (Lidocaine Viscous 2% 15 Ml Unit Dose Cup) 15 ml PO Q6HP PRN PRN Reason: Mouth Sore Pain Last Admin: 10/28/22 04:13 Dose: 15 ml Losartan Potassium (Losartan 50 Mg Tablet) 50 mg PO DAILY [facility] Last Admin: 10/30/22 08:42 Dose: 50 mg Nicotine (Nicotine 21 Mg Patch) 21 mg TOPICAL DAILY@1000 [facility] Last Admin: 10/30/22 11:13 Dose: 21 mg Nicotine Polacrilex (Nicotine Polacrilex 2 Mg Gum) 2 mg CHEW/PARK Q4HP PRN PRN Reason: nicotine withdrawal Ondansetron HCl (Ondansetron 4 Mg/2 Ml Vial) 4 mg IV Q4HP PRN; Protocol PRN Reason: Nausea And Vomiting Last Admin: 10/27/22 12:08 Dose: 4 mg Pantoprazole Sodium (Pantoprazole 40 Mg Tablet) 40 mg PO [facility] Last Admin: 10/29/22 20:41 Dose: 40 mg Benzocaine 20% [ (Anbesol] Liquid) 1 dose PO Q6HP PRN PRN Reason: Mouth Sore Pain Last Admin: 10/29/22 17:38 Dose: 1 dose Prednisone (Pred[facility] 20 Mg Tablet) [facility] Last Admin: 10/30/22 08:43 Dose: 40 mg Senna (Sennosides 1 Tablet) 2 tab PO HSP PRN PRN Reason: Constipation Sodium Chloride (0.9 % Sodium Chloride 10 Ml Syringe) 10 ml IV Q8 [facility] Last Admin: 10/30/22 04:33 Dose: 10 ml Sodium Chloride (Sodium Chloride 1 Gm Tablet) 1 gm PO BID [facility] Last Admin: 10/30/22 08:43 Dose: 1 gm Tamsulosin HCl (Tamsulosin 0.4 Mg Capsule) 0.8 mg PO [facility] Last Admin: 10/29/22 20:41 Dose: 0.8 mg Thiamine HCl (Thiamine 100 Mg Tablet) 100 mg PO DAILY [facility] Last Admin: 10/30/22 08:42 Dose: 100 mg A/P Narrative A/P Narrative: A: #Hyponatermia, hypervolemic: probably multifactorial, improving #Community-acquired (RML) pneumonia #Right knee pain and effusion, positive for calcium pyrophosphate, Pseuodgout: #Acute on chronic anemia: #volume overload likely secondary to right heart failure: improving #Oral ulcer/lesion: #DM2: #Essential hypertension #Primary myelofibrosis on Inrebic #Splenomegaly #FARZANEH / Obesity: #BPH / Restless leg syndrome / History of DVT #High-grade stenosis of right internal carotid artery, asymptomatic Plan: -Transfuse 1 unit RBC, follow hemoglobin later today and tomorrow -Radiology for right knee arthrocentesis, ordered synovial cell count -Orthopedic surgery to evaluate right knee effusion. -Start prednisone 40 mg daily for right knee effusion possibly secondary to acute pseudogout -Discontinue Naproxen given. the drop in hemoglobin -Continue Lasix 40 mg p.o. twice daily -Monitor sodium, avoid overcorrection. fluid restrict -Sodium tablet twice daily. -Monitor renal function, electrolytes, and urine output. -Hold Inrebic for now as this is nonformulary can also cause hyponatremia -Complete pneumonia treatment with cefdinir and oral azithromycin -SSI -Viscous benzocaine as needed for tongue ulcer -Tessalon Perles as needed. -Continue home Aspirin, gabapentin, levothyroxine, Flomax -CPAP at bedtime. -ppx: Lovenox Disposition: home when stable, possibly tomorrow. Referral to cardiology for right ventricular failure, referral to oral maxillofacial surgery for tongue ulcer/lesion evaluation. Referral to vascular surgery for high-grade stenosis of right internal carotid artery. Follow-up with oncology for myelofibrosis. Time Spent With Patient Time: Total time spent is greater than 50% in coordination of care (as documented) at patient's floor/unit and/or counseling patient:
--- NOTE | 2022-10-30 13:17 | Discharge Summary ---
Discharge Provider Provider IMPORTANT FOLLOW-UP INFORMATION FOR PCP: Referral to oral maxillofacial surgery for tongue ulcer/lesion evaluation, 3-14 days. follow up with oncology for Myelofibrosis - Inrebic held for hyponatremia. Referral to cardiology for right heart failure, 3-14 days. Referral to see Dr. Rivera for high-grade stenosis of the right internal carotid artery Patient information: Note initiated : 10/30/22 at 1:14 pm Service Date, if different from initiated Date: [] Patient: Davis Terrazas 66 y/o M admitted on 10/25/22 for retaining water. Chief Complaint: [] Date of admission: 10/25/22 21:22 Discharge date: 10/31/22 Primary care physician: Elie Adam DO Consults: 10/25/22 Consult to Physician [CONS] Stat Comment: Consulting Provider: Daniel Hartman Reason For Exam: Physician to Consult 10/30/22 10:51 Consult to Physician [CONS] Routine Comment: Consulting Provider: Roc Yun Reason For Exam: Physician to Consult COURSE Hospital Course Hospital course: HPI: Mr. 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 Patient also had a recent cough and left neck tenderness. A normal LVEF, estimated to be 65 to 70%. Diastolic dysfunction however could not determine the grade of diastolic dysfunction, the right ventricle was moderate to severely dilated and the right ventricular systolic function appeared moderately reduced, Doppler findings was not suggestive of pulmonary hypertension. D-dimer was found to be elevated. A CTA chest did not show any evidence of pulmonary emboli, there was a right middle lobe infiltrate concerning for pneumonia, small pleural effusions, mild cardiomegaly and hepatosplenomegaly. A soft tissue neck CT with contrast showed nonspecific reactive lymph nodes on both sides of the neck, no abscess, there was high-grade stenosis of the right internal carotid due to calcified plaque. Urine protein to creatinine ratio was not consistent with nephrotic syndrome. Iron studies were normal. 10/27 Started the patient on ceftriaxone and azithromycin for probable right middle lobe pneumonia. Sodium level fluctuating, added on serum osmolality, urine sodium, urine osmolality, morning cortisol level. Lower extremity edema improved significantly since admission, continue diuresis with Lasix 40 mg IV twice daily. 10/28 Sodium level overall improved but still in the upper teens and lower 20s. Volume status has improved, transition to oral Lasix 40 mg twice daily. Hypertonic 3% saline 100 mL IV today and monitor sodium level. Serum osmolality low, urine sodium was 63, urine osmolality was 395. TSH was mildly elevated at 7.88. Morning cortisol was normal. 10/29 Sodium level has increased to 126. Today the patient has new right knee pain a nd an effusion, will perform arthrocentesis today. Carotid artery showed approximately 90% stenosis of the proximal right internal carotid artery due to large amount of densely calcified plaque. Arthrocentesis work-up positive for calcium pyrophosphate synovial fluid. Started naproxen 500 mg twice daily. 10/30 Hemoglobin dropped to 6.6 this morning, will transfuse 1 unit of red blood cells. Right knee swelling reoccurred. Radiology consulted to perform arthrocentesis, cell count to evaluate for hemarthrosis. Will consult orthopedic surgery to evaluate right knee. 10/31 Patient feeling good today. Ambulating with physical therapy well. Patient refuses SNF or home health care services. High risk for readmission given comorbidities A: #Hyponatermia, hypervolemic: probably multifactorial, improving #Community-acquired (RML) pneumonia #Right knee pain and effusion, positive for calcium pyrophosphate, Pseuodgout: #Acute on chronic anemia: #volume overload likely secondary to right heart failure: improving #Oral ulcer/lesion: #DM2: #Essential hypertension #Primary myelofibrosis on Inrebic #Splenomegaly #FARZANEH / Obesity: #BPH / Restless leg syndrome / History of DVT #High-grade stenosis of right internal carotid artery, asymptomatic Plan: -finishe course of prednisone acute pseudogout -Hold Inrebic for now as this is nonformulary can also cause hyponatremia -Complete pneumonia treatment with cefdinir and oral azithromycin -Referral to cardiology for right ventricular failure -Referral to oral maxillofacial surgery for tongue ulcer/lesion evaluation. -Referral to vascular surgery for high-grade stenosis of right internal carotid artery. -Follow-up with oncology for myelofibrosis. Discharge diagnosis: Hyponatremia pneumonia pseudogout volume overload Secondary discharge diagnosis: Diabetes hypertension myelofibrosis obstructive sleep apnea splenomegaly right internal carotid artery stenosis right heart failure Time Spent with Patient Time attestation: Total time spent providing and/or coordinating discharge services: Time spent: Greater than 30 minutes EXAM Constitutional Vitals: Temp Pulse Resp BP Pulse Ox O2 Del Method O2 Flow Rate 97.4 F 66 18 122/64 97 0 10/30/22 12:00 10/30/22 12:00 10/30/22 12:00 10/30/22 12:00 10/30/22 12:00 10/30/22 12:00 10/29/22 04:45 Discharge Data Data Completed and Pending Labs on day of discharge: Labs from last 24 hours 10/30/22 10/30/22 10/30/22 07:33 05:41 05:40 WBC 1.5 L 1.5 L RBC 2.24 L 2.18 L Hgb 6.6 L* 6.4 L* Hct 20.6 L* 20.4 L* MCV 92.0 93.6 MCH 29.5 29.4 MCHC 32.0 31.4 RDW 15.4 H 15.5 H Plt Count 158 150 MPV 8.9 9.0 Immature Gran % (Auto) 17.2 H 14.8 H Neut % (Auto) 59.3 57.0 Lymph % (Auto) 16.6 14.8 L [place] % (Auto) 6.2 11.4 Eos % (Auto) 0 0.7 Baso % (Auto) 0.7 1.3 Lymph # (Auto) 0.24 L 0.22 L [place] # (Auto) 0.09 L 0.17 Eos # (Auto) 0 0.01 Baso # (Auto) 0.01 0.02 Immature Gran # 0.25 H 0.22 H Absolute Neutrophils 0.86 L* 0.85 L* Sodium 128 L Potassium 4.0 Chloride 95 L Carbon Dioxide 23 Anion Gap 10.0 BUN 26 H Creatinine 0.9 GFR Calculation 87 Glucose 110 H Calcium 8.2 L Phosphorus 3.3 Albumin 3.3 Fluid Source Fluid Color Fluid Appearance Fluid RBC Fluid Diff Comment Fluid Tot Cell Count Fluid Nucleated Cells Fluid Neutrophils Fluid Lymphocytes Fluid Monocytes Fluid Crystals Synovial Source Synovial Color Synovial Appearance Synovial Tot Cell Ct Synovial Nuc Cells Synovial Neutrophils Synovial Lymphocytes Synovial Other Cells 10/29/22 10/29/22 10/29/22 15:00 14:05 14:04 WBC RBC Hgb Hct MCV MCH MCHC RDW Plt Count MPV Immature Gran % (Auto) Neut % (Auto) Lymph % (Auto) [place] % (Auto) Eos % (Auto) Baso % (Auto) Lymph # (Auto) [place] # (Auto) Eos # (Auto) Baso # (Auto) Immature Gran # Absolute Neutrophils Sodium Potassium Chloride Carbon Dioxide Anion Gap BUN Creatinine GFR Calculation Glucose Calcium Phosphorus Albumin Fluid Source TNP Fluid Color TNP Fluid Appearance TNP Fluid RBC TNP Fluid Diff Comment TNP Fluid Tot Cell Count TNP Fluid Nucleated Cells TNP Fluid Neutrophils TNP Fluid Lymphocytes TNP Fluid Monocytes TNP Fluid Crystals Ca pyrophosphate A Synovial Source Right knee Synovial Color Yellow Synovial Appearance Hazy Synovial Tot Cell Ct 100 Synovial Nuc Cells 3450 Synovial Neutrophils 100 H Synovial Lymphocytes 0 Synovial Other Cells 0 Preliminary micro results at discharge 10/29/22 14:03 Gram Stain - Preliminary Synovial Fluid - First Body Fluid Culture - Preliminary Discharge Plan Patient/Caregiver Discharge Instructions Activity: increase activity as tolerated Diet: Consistent Carbohydrate Activity Restrictions/Additional Instructions: Referral to oral maxillofacial surgery for tongue ulcer/lesion evaluation, 3-14 days. follow up with oncology for Myelofibrosis - Inrebic held for hyponatremia. Referral to cardiology for right heart failure, 3-14 days. Prescriptions: New cefdinir 300 mg Capsule 300 mg PO BID Qty: 2 0RF prednisone 10 mg tablet 30 mg PO QDAY Qty: 1 0RF Rx Instructions: Take 30mg once daily for 2 days then 20mg daily for 2 days then 10mg daily x2 days then 5mg x2 days and stop Continued (DME) lancets misc See Dose Instructions .ROUTE .MEDSUPPLY Qty: 100 3RF Dose Instruction: As directed Rx Instructions: Use to test blood sugar up to three times daily valacyclovir 1 gram tablet 1,000 mg PO BID PRN (Reason: Cold Sores) Qty: 180 1RF Label Comments: PATIENT ONLY TAKES WHEN HE HAS COLD SORES. alprazolam 0.5 mg tablet 0.5 mg PO DAILYP PRN (Reason: anxiety) Qty: 30 3RF verapamil 180 mg capsule,ext rel. pellets 24 hr 180 mg PO HS Qty: 90 1RF levothyroxine 88 mcg tablet 88 mcg PO QDAY Qty: 90 3RF (DME) OneTouch Ultra Test Strip See Rx Instructions .Route Qty: 100 3RF Rx Instructions: As directed testing blood sugar once daily tamsulosin [Flomax] 0.4 mg capsule 0.8 mg PO HS Qty: 180 1RF hydrocodone-acetaminophen 7.5-325 mg tablet 1 tab PO BID PRN (Reason: pain) Qty: 60 0RF clobetasol 0.05 % ointment 1 applic TOPICAL QDAY Qty: 60 0RF Rx Instructions: Apply to hands and legs metformin 500 mg tablet 500 mg PO BID (DME) NATHAN Elbow Brace Misc See Rx Instructions .Route Qty: 1 0RF Rx Instructions: As directed aspirin 325 mg Tablet 325 mg PO HS Label Comments: HOLDING FOR SURGERY CPAP & Supplies inhaler 1 inh inhalation HS Rx Instructions: Use nightly for FARZANEH. amlodipine 5 mg tablet 1 tab PO QDAY losartan 100 mg Tablet 100 mg PO QDAY solifenacin 10 mg tablet 10 mg PO HS diphenhydramine HCl [Allergy (diphenhydramine)] 25 mg Tablet 50 mg PO QHS PRN (Reason: Insomnia) gabapentin 600 mg tablet 1 tab PO BID Changed naproxen sodium [Aleve] 220 mg Capsule 220 mg PO HS PRN (Reason: pain]) Qty: 1 0RF Discontinued cephalexin 500 mg capsule 1 cap PO TID Rx Instructions: Take until gone Inrebic 100 mg capsule 4 cap PO DAILY Follow Up Plan Follow up with: Elie Rivera MD [Physician] - (Right IC artery 90% stenosis) Elie Adam DO [Primary Care Provider] - Patient Disposition: Home, Self-Care Prognosis: Fair Overall status at discharge: patient is progressing back to baseline Discharge Orders: Discharge Order (Routine); Ordered 10/31/22 Ordered By: Faheem Thomas
--- NOTE | 2022-10-30 14:58 | XRay Report ---
CLINICAL INFORMATION: Recurrent knee effusion COMPARISON: None. TECHNIQUE: The procedure and risks including possibility of bleeding and infection were explained the patient. He understood and wished to proceed. With the patient supine on the fluoroscopy table, the skin overlying the medial patellofemoral joint was fluoroscopically marked, prepped and locally anesthetized with 1% lidocaine to the level of the joint space using a 25-gauge needle. An 18-gauge needle was placed under fluoroscopy into the, femoral joint. Approximately 15 cc of serosanguineous joint effusion was aspirated and sent for requested studies. The needle was then removed. It was well tolerated. IMPRESSION: Successful fluoroscopic guided aspiration of the right patellofemoral joint yielding 15 cc of serosanguineous joint effusion. This was sent for requested studies. No complication Interpreted and Authenticated by: Elie Perez 10/30/22
[2022-10-30] MEDS: BENZOCAINE 20% PO PRN (16:25)
[2022-10-30] MEDS: ASPIRIN 81 MG TAB.CHEW PO SCH (20:13)
[2022-10-30] MEDS: PANTOPRAZOLE 40 MG TABLET PO SCH (20:14)
[2022-10-30] MEDS: TAMSULOSIN 0.4 MG CAPSULE PO SCH (20:14)
[2022-10-30] MEDS: diphenhydrAMINE 25 MG CAPSULE PO PRN (20:26)
--- NOTE | 2022-10-30 20:58 | EKG ---
[facility] Test Date: 2022-10-25 Pat Name: Davis Terrazas Department: ED Room: Gender: Male [employer] Fe[employer]: SS : [id number] Requested By: Nicol Lau Order Number: [id number] Reading MD: Rodri Clayton Measurements Intervals [place] Rate: 58 P: FL: QRS: -3 QRSD: 123 T: 58 QT: 430 QTc: 421 Interpretive Statements Junctional rhythm Right bundle branch block Electronically Signed On 10-30-2022 20:58:36 PST by Rodri Clayton /[email or web address]/[id number]
[2022-10-30 21:29] LABS: Appearance,Synovial Fluid Cloudy; Color,Synovial Fluid Red; Lymphocytes,Synovial Fluid 9 %; Neutrophils,Synovial Fluid 90 % (0-25); Nucleated Cells,Synovial Fld 8420 /cumm; Other Cells,Synovial Fluid 1 %
[2022-10-31] MEDS: 0.9 % SODIUM CHLORIDE 10 ML SYRINGE IV SCH (05:43)
--- NOTE | 2022-10-31 07:26 | Internal Med Progress Note ---
SUBJECTIVE Subjective Patient information: Note initiated : 10/31/22 at 7:23 am Service Date, if different from initiated Date: [] Patient: Davis Terrazas 66 y/o M admitted on 10/25/22 for retaining water. Chief Complaint: [] Interval history: Mr. 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 Patient also had a recent cough and left neck tenderness. A normal LVEF, estimated to be 65 to 70%. Diastolic dysfunction however could not determine the grade of diastolic dysfunction, the right ventricle was moderate to severely dilated and the right ventricular systolic function appeared moderately reduced, Doppler findings was not suggestive of pulmonary hypertension. D-dimer was found to be elevated. A CTA chest did not show any evidence of pulmonary emboli, there was a right middle lobe infiltrate concerning for pneumonia, small pleural effusions, mild cardiomegaly and hepatosplenomegaly. A soft tissue neck CT with contrast showed nonspecific reactive lymph nodes on both sides of the neck, no abscess, there was high-grade stenosis of the right internal carotid due to calcified plaque. Urine protein to creatinine ratio was not consistent with nephrotic syndrome. Iron studies were normal. 10/27 Started the patient on ceftriaxone and azithromycin for probable right middle lobe pneumonia. Sodium level fluctuating, added on serum osmolality, urine sodium, urine osmolality, morning cortisol level. Lower extremity edema improved significantly since admission, continue diuresis with Lasix 40 mg IV twice daily. 10/28 Sodium level overall improved but still in the upper teens and lower 20s. Volume status has improved, transition to oral Lasix 40 mg twice daily. Hypertonic 3% saline 100 mL IV today and monitor sodium level. Serum osmolality low, urine sodium was 63, urine osmolality was 395. TSH was mildly elevated at 7.88. Morning cortisol was normal. 10/29 Sodium level has increased to 126. Today the patient has new right knee pain and an effusion, will perform arthrocentesis today. Carotid artery showed approximately 90% stenosis of the proximal right internal carotid artery due to large amount of densely calcified plaque. Arthrocentesis work-up positive for ca lcium pyrophosphate synovial fluid. Started naproxen 500 mg twice daily. 10/30 Hemoglobin dropped to 6.6 this morning, will transfuse 1 unit of red blood cells. Right knee swelling reoccurred. Radiology consulted to perform arthrocentesis, cell count to evaluate for hemarthrosis. Will consult [facility] surgery to evaluate right knee. 10/31 No overnight event or new complaints. Patient's hemoglobin after the unit of blood yesterday is 7.2 this morning. Leukopenia noted. Neutropenia improving. Hyponatremia, but stable. Review of Systems: denies headache/fever/chills/nausea/vomiting/chest or abdominal pain/cough/dyspnea/diarrhea. Otherwise see above. Constitutional Vitals: Vital Signs Temp Pulse Resp BP Pulse Ox O2 Del Method O2 Flow Rate 97.3 F 54 L 18 128/73 98 CPAP 0 10/31/22 04:16 10/31/22 04:16 10/31/22 04:16 10/31/22 04:16 10/31/22 04:16 10/31/22 04:16 10/30/22 21:00 Period Temp Pulse Resp BP Sys/Hurst Pulse Ox O2 Del Method O2 Flow Rate Last 24 Hr 97.3 F-98.3 F 54-70 18-20 114-133/60-76 96-98 CPAP-Room Air, CPAP 0 Intake and Output 10/30/22 10/31/22 10/31/22 19:59 03:59 11:59 Intake Total 120 182 100 Output Total 950 350 Balance -830 -168 100 Weight 91.807 kg Intake & Output: Intake & Output 10/30/22 10/31/22 10/31/22 19:59 03:59 11:59 Intake Total 120 182 100 Output Total 950 350 Balance -830 -168 100 Weight 91.807 kg Intake: IV 182 Sodium Chloride 0.9% 250 ml @ 182 20 mls/hr IV .[id number] [facility] Rx#: [id number] Oral 120 100 Output: Void Amount 950 350 Other: Meal Dinner Percent of Meal Consumed 100% Feeding Ability Independent Urine Appearance Clear Clear Urine Color Bright Yellow Bright Yellow Urine Odor Normal # Voids 1 Exam: General: Alert, Awake, No acute Distress Eyes/N/T: EOMI, Head/Neck: neck supple, CV: RRR, No murmurs, Pulm: Clear b/l, no wheezing/rhonchi/rales Abd: soft, Obesely distended,, nontender, +BS x4 Ext: no clubbing/cyanosis, Right knee effusion, mild bilateral lower extremity edema Neuro: Alert, no focal deficits, moves all extremities, Skin: warm/dry OBJ DATA Labs CBC & Chem 7: 10/31/22 05:42 10/31/22 05:42 Labs: Abnormal Lab Results 10/30/22 10/30/22 10/30/22 14:37 07:58 07:33 WBC 1.5 L RBC 2.24 L Hgb 7.6 L 6.6 L* Hct 20.6 L* RDW 15.4 H Immature Gran % (Auto) 17.2 H Lymph % (Auto) Lymph # (Auto) 0.24 L [place] # (Auto) 0.09 L Immature Gran # 0.25 H Absolute Neutrophils 0.86 L* Sodium Chloride Anion Gap BUN Glucose Calcium Lactate Dehydrogenase Total Protein Globulin Fluid Crystals Synovial Neutrophils 90 H 10/30/22 10/30/22 10/29/22 05:41 05:40 15:00 WBC 1.5 L RBC 2.18 L Hgb 6.4 L* Hct 20.4 L* RDW 15.5 H Immature Gran % (Auto) 14.8 H Lymph % (Auto) 14.8 L Lymph # (Auto) 0.22 L [place] # (Auto) Immature Gran # 0.22 H Absolute Neutrophils 0.85 L* Sodium 128 L Chloride 95 L Anion Gap BUN 26 H Glucose 110 H Calcium 8.2 L Lactate Dehydrogenase Total Protein Globulin Fluid Crystals Synovial Neutrophils 100 H 10/29/22 10/29/22 10/28/22 14:04 05:35 19:07 WBC RBC Hgb Hct RDW Immature Gran % (Auto) Lymph % (Auto) Lymph # (Auto) [place] # (Auto) Immature Gran # Absolute Neutrophils Sodium 126 L 122 L Chloride 94 L Anion Gap BUN Glucose 111 H Calcium 8.0 L Lactate Dehydrogenase 942 H Total Protein 5.5 L Globulin 2.0 L Fluid Crystals Ca pyrophosphate A Synovial Neutrophils 10/28/22 10/28/22 10/28/22 12:07 05:34 05:34 WBC RBC Hgb 8.0 L Hct RDW Immature Gran % (Auto) Lymph % (Auto) Lymph # (Auto) [place] # (Auto) Immature Gran # 0.41 H Absolute Neutrophils Sodium 119 L* Chloride 89 L Anion Gap 7.0 L BUN 33 H Glucose 123 H Calcium 8.1 L Lactate Dehydrogenase 938 H Total Protein 5.4 L Globulin 2.0 L Fluid Crystals Synovial Neutrophils Meds: Medications Acetaminophen (Acetaminophen 325 Mg Tablet) 650 mg PO Q6HP PRN; Protocol PRN Reason: Per Pain Protocol/Fever > 101 Last Admin: 10/27/22 21:26 Dose: 650 mg Hydrocodone Bitart/Acetaminophen (Hydrocodone/Apap 7.5/325mg Tablet) 1 tab PO Q6HP PRN; Protocol PRN Reason: Per Pain Protocol Last Admin: 10/30/22 16:04 Dose: 1 tab Artificial Tears (Carboxymethylcellulose Sodium 1 Each Droper.Gel) 1 each OU PRN PRN PRN Reason: Dry Eye(s) Last Admin: 10/28/22 16:19 Dose: 1 each Aspirin (Aspirin 81 Mg Tab.Chew) 81 mg PO HS [facility] Last Admin: 10/30/22 20:13 Dose: 81 mg Bacitracin (Bacitracin Topical Oint 15 Gm Tube) 1 dose TOPICAL BID [facility] Last Admin: 10/30/22 20:15 Dose: 1 dose Benzonatate (Benzonatate 100 Mg Capsule) 100 mg PO TIDP PRN PRN Reason: Cough Last Admin: 10/26/22 08:12 Dose: 100 mg Dextrose (Dextrose 50% 50 Ml Vial) 0 ml IV UD PRN PRN Reason: Per Sliding Scale Diagnostic Test (Pha) (Accu-Chek 1 Each Strip) 1 each FS ACHS [facility] Last Admin: 10/30/22 20:13 Dose: 1 each Diphenhydramine HCl (Diphenhydramine 25 Mg Capsule) 50 mg PO HSP PRN PRN Reason: Insomnia Last Admin: 10/30/22 20:26 Dose: 50 mg Docusate Sodium (Docusate Sodium 100 Mg Capsule) 100 mg PO BID [facility] Last Admin: 10/30/22 20:13 Dose: 100 mg Enoxaparin Sodium (Enoxaparin 40 Mg/0.4 Ml Syringe) 40 mg SQ DAILY [facility] Last Admin: 10/30/22 08:42 Dose: 40 mg Furosemide (Furosemide 40 Mg Tablet) 40 mg PO BIDD [facility] Last Admin: 10/30/22 16:04 Dose: 40 mg Gabapentin (Gabapentin 300 Mg Capsule) 600 mg PO BID [facility] Last Admin: 10/30/22 20:14 Dose: 600 mg Glucose (Dextrose 31 Gm Oral.Susp) 15 gm PO PRN PRN PRN Reason: Hypoglycemia Insulin Human Lispro (Insulin Lispro 1 Unit/0.01 Ml Unit) 0 unit SQ [facility]; Protocol Last Admin: 10/30/22 20:22 Dose: 4 unit Lactulose (Lactulose 20 Gm/30 Ml Oral.Franny) 10 gm PO DAILYP PRN PRN Reason: Constipation Last Admin: 10/30/22 16:05 Dose: 10 gm Levothyroxine Sodium (Levothyroxine 100 Mcg Tablet) 100 mcg PO 0730 [facility] Last Admin: 10/30/22 07:41 Dose: 100 mcg Lidocaine HCl (Lidocaine Viscous 2% 15 Ml Unit Dose Cup) 15 ml PO Q6HP PRN PRN Reason: Mouth Sore Pain Last Admin: 10/28/22 04:13 Dose: 15 ml Losartan Potassium (Losartan 50 Mg Tablet) 50 mg PO DAILY [facility] Last Admin: 10/30/22 08:42 Dose: 50 mg Nicotine (Nicotine 21 Mg Patch) 21 mg TOPICAL DAILY@1000 [facility] Last Admin: 10/30/22 11:13 Dose: 21 mg Nicotine Polacrilex (Nicotine Polacrilex 2 Mg Gum) 2 mg CHEW/PARK Q4HP PRN PRN Reason: nicotine withdrawal Ondansetron HCl (Ondansetron 4 Mg/2 Ml Vial) 4 mg IV Q4HP PRN; Protocol PRN Reason: Nausea And Vomiting Last Admin: 10/27/22 12:08 Dose: 4 mg Pantoprazole Sodium (Pantoprazole 40 Mg Tablet) 40 mg PO [facility] Last Admin: 10/30/22 20:14 Dose: 40 mg Benzocaine 20% [ (Anbesol] Liquid) 1 dose PO Q6HP PRN PRN Reason: Mouth Sore Pain Last Admin: 10/30/22 16:25 Dose: 1 dose Prednisone (Pred[facility] 20 Mg Tablet) [facility] Last Admin: 10/30/22 08:43 Dose: 40 mg Senna (Sennosides 1 Tablet) 2 tab PO HSP PRN PRN Reason: Constipation Sodium Chloride (0.9 % Sodium Chloride 10 Ml Syringe) 10 ml IV Q8 [facility] Last Admin: 10/31/22 05:43 Dose: Not Given Sodium Chloride (Sodium Chloride 1 Gm Tablet) 1 gm PO BID [facility] Last Admin: 10/30/22 20:14 Dose: 1 gm Tamsulosin HCl (Tamsulosin 0.4 Mg Capsule) 0.8 mg PO HS [facility] Last Admin: 10/30/22 20:14 Dose: 0.8 mg Thiamine HCl (Thiamine 100 Mg Tablet) 100 mg PO DAILY [facility] Last Admin: 10/30/22 08:42 Dose: 100 mg A/P Narrative A/P Narrative: A: #Hyponatermia, hypervolemic: probably multifactorial, improving #Community-acquired (RML) pneumonia #Right knee pain and effusion, positive for calcium pyrophosphate, Pseudogout: #Acute on chronic anemia: -s/p 1prbc(10/30) #volume overload likely secondary to right heart failure: improving #Oral ulcer/lesion: #DM2: #Essential hypertension #Primary myelofibrosis on Inrebic: with leukopenia #Splenomegaly #FARZANEH on cpap #Obesity: #BPH / Restless leg syndrome / History of DVT #High-grade stenosis of right internal carotid artery, asymptomatic Plan: -monitor H&H -Orthopedic surgery to evaluate right knee effusion. -Start prednisone 40 mg daily for right knee effusion possibly secondary to acute pseudogout -Discontinue Naproxen given. the drop in hemoglobin -Continue Lasix 40 mg p.o. twice daily -Monitor sodium, avoid overcorrection. fluid restrict -Sodium tablet twice daily. -Monitor renal function, electrolytes, and urine output. -Hold Inrebic for now as this is nonformulary can also cause hyponatremia -Complete pneumonia treatment with cefdinir and oral azithromycin -SSI -Viscous benzocaine as needed for tongue ulcer -Tessalon Perles as needed. -Continue home Aspirin, gabapentin, levothyroxine, Flomax -CPAP at bedtime. -ppx: Lovenox Disposition: home when stable, possibly tomorrow. Referral to cardiology for right ventricular failure, referral to oral maxillofacial surgery for tongue u lcer/lesion evaluation. Referral to vascular surgery for high-grade stenosis of right internal carotid artery. Follow-up with oncology for myelofibrosis. Time Spent With Patient Time: Total time spent is greater than 50% in coordination of care (as documented) at patient's floor/unit and/or counseling patient: Total time spent with greater than 50% in coordination of care (as documented) at patient's floor/unit and/or counseling patient:: 35 - 50 minutes
[2022-10-31] MEDS: INSULIN LISPRO 1 UNIT/0.01 ML UNIT SQ SCH ×2 (07:45→11:23)
[2022-10-31 07:46] LABS: Basophils # (Auto) 0.03 K/mcL (0.00-0.30); Basophils % (Auto) 1.5 % (0.0-2.0); Eosinophils # (Auto) 0 K/mcL (0.00-0.70); Eosinophils % (Auto) 0 % (0.0-7.0); Hematocrit 22.2 % (40.1-51.0); Hemoglobin 7.2 g/dL (13.7-17.5); Lymphocytes # (Auto) 0.28 K/mcL (1.50-4.80); Mean Cell Volume 89.5 fL (80.0-100.0); Mean Corpuscular HGB Conc 32.4 g/dL (31.0-36.0); Monocytes # (Auto) 0.09 K/mcL (0.10-0.90); Monocytes % (Auto) 4.5 % (1.0-12.0); Neutrophils % (Auto) 62.5 % (38.0-78.0); Platelet Count 169 K/mcL (140-440); RBC 2.48 M/mcL (4.63-6.08); Red Cell Distribution Width 15.6 % (11.5-14.5)
[2022-10-31] MEDS: LEVOTHYROXINE 100 MCG TABLET PO SCH (07:47)
[2022-10-31 07:48] LABS: Albumin 3.5 gm/dL (3.2-5.2); Calcium 8.3 mg/dL (8.6-10.4); Phosphorous 3.4 mg/dL (2.5-4.5)
[2022-10-31] MEDS: ENOXAPARIN 40 MG/0.4 ML SYRINGE SQ SCH (08:52)
[2022-10-31] MEDS: LOSARTAN 50 MG TABLET PO SCH (08:53)
[2022-10-31] MEDS: GABAPENTIN 300 MG CAPSULE PO SCH (08:53)
[2022-10-31] MEDS: FUROSEMIDE 40 MG TABLET PO SCH (08:53)
[2022-10-31] MEDS: DOCUSATE SODIUM 100 MG CAPSULE PO SCH (08:53)
[2022-10-31] MEDS: SODIUM CHLORIDE 1 GM TABLET PO SCH (08:53)
[2022-10-31] MEDS: THIAMINE 100 MG TABLET PO SCH (08:53)
[2022-10-31] MEDS: predniSONE 20 MG TABLET PO SCH (08:54)
[2022-10-31] MEDS: BACITRACIN TOPICAL OINT 15 GM TUBE TOPICAL SCH (08:54)
[2022-10-31] MEDS: CEFDINIR 300 MG CAPSULE PO SCH (08:55)
[2022-10-31] MEDS: NICOTINE 21 MG PATCH TOPICAL SCH (11:24)
--- NOTE | 2022-11-02 07:30 | Consultation ---
DATE OF CONSULTATION: 11/01/2022 HISTORY OF PRESENT ILLNESS: Thank you for this consultation. I was notified on 10/30 of the consultation to review some of the findings on Davis Terrazas. He has had two aspirations of his knee with a drop in the corresponding hemoglobin. There have been negative taps in the knee. His hemoglobin has dropped to 7.6. There was some concern whether he bled in his knee. There were some findings of pseudogout but the cell counts are all within normal limits or just inflammatory process. No signs of infection on any of these. He has had multiple studies done, chest x-rays, D-dimers, and complete blood workup several times. These do not indicate any signs of infection in these labs. His knee shows prior sites of infection. With these findings, there is no need for treatment of the knee. There are no findings of infection that would indicate a bleed nor general sepsis or septic knee. This is not the source of the bleed nor is the source of any type of infection. There is some chronic inflammation going on within the knee but this could be of several origins, more likely pseudogout. I am happy to see the patient in the office. No further workup here in the hospital would be indicated with these kind of labs. RBH:kiley Job ID: [id number] Doc ID: [id number] Roc Yun MD
== END 2022-10-31 14:25 | disposition home or self-care (01) | DRG 640 ==
LOC: ED 16:53 → ICU 21:22 → MEDSUR 10-29 12:05
PROVIDERS: ADMIT Internal Medicine; ATTEND Internal Medicine